=== PATIENT | male | born 1945 | race Caucasian/White ===

== ENCOUNTER 2016-08-14 11:34 | Inpatient (IN) | payer OTHER, MEDICARE ==
[~2016-08-14] VITALS: Ht 160 cm; Wt 97.5 kg
[~2016-08-14 11:34] MED LIST: ANDROGEL1.62% TOP; ASPIRIN EC81 M1 PO; ATIVAN0.5 MG PO; ATIVAN2 MG PO; AUGMENTIN 875-1 EACH PO; AUGMENTIN 875875 MG PO; CALCIUM 600 +1 EA10; CIPROFLOXACIN500 MG PO; COLACE100 MG PO; DOCUSATE SOD100 MG PO; ESCITALOPRAM OX20 MG PO; FIORICET 300 MG1 CAP PO; FIORICET 325 MG1 TAB PO; FLOMAX0.4 M1 PO; GABAPENTIN300 MG PO; HYDROXYCHLOROQ200 M1 PO; KLONOPIN 1MG TAB1 MG PO; LEFLUNOMIDE20 MG PO; LEVITRA2.5 MG PO; LEVOTHYROXIN0.075 M1 PO; LEVOTHYROXINE100 MC1 PO; LORAZEPAM2 MG PO; METOPROLOL SUCC50 MG PO; METRONIDAZOLE500 MG PO; MULTIVITAMIN1 TAB PO; NATURAL IRON65 MG PO; NEURONTIN300 M1 PO; NITROSTAT0.4 MG SL; OXYCODONE HCL5 M1 PO; OXYCODONE HYDROC5 MG PO; PLAQUENIL200 M1 PO; PREDNISONE5 M1 PO; PREDNISONE5 MG PO; PRILOSEC 20MG C20 MG PO; PRILOSEC OTC20 M1 PO; REQUIP 0.5MG0.5 M1 PO; TAMSULOSIN HYD0.4 MG PO; TOPROL XL50 M2 PO; TRAMADOL HYDROC50 MG PO; TYLENOL TAB 32325 MG PO; ULTRAM(MONOGRAP50 MG PO; VITAMIN B122500 MC1; VITAMIN D3400 UNI1; VITAMIN D50000 IU PO
--- NOTE | 2016-08-14 11:41 | ED GI/GU/ABDOMINAL COMPLAINT ---
History of Present Illness General Chief Complaint: Abdominal Pain/Flank Pain Stated Complaint: ABD PAIN Source: patient Exam Limitations: no limitations Vital Signs & Intake/Output Vital Signs & Intake/Output Vital Signs Date Time Temp Pulse Resp B/P B/P Pulse O2 O2 Flow FiO2 Mean Ox Delivery Rate 08/14 1903 98.7 77 20 118/60 96 Room Air 08/14 1710 97.3 77 18 98/80 97 08/14 1700 98.0 80 18 108/64 97 Room Air 08/14 1143 99.6 86 15 106/67 92 Room Air Room Air Allergies Coded Allergies: methotrexate (Severe, BREATHING PROBLEMS 08/14/16) hydrocodone (UNKNOWN 08/14/16) hydrochlorothiazide (From Dyazide) (Severe, LETHARGIC 08/14/16) triamterene (From Dyazide) (Severe, LETHARGIC 08/14/16) Uncoded Allergies: MAXIDINE (UNKNOWN 09/22/13) Reconcile Medications Amoxicillin/Potassium Clav (Augmentin 875-125 Tablet) 1 EACH TABLET 1 TAB PO BID Infection Aspirin (Ecotrin*) 81 MG TABLET.DR 1 TAB PO QPM HEART HEALTH (Reported) Butalbital/Aspirin/Caffeine (Raduhypkht-Dnz-Epsgvnll Cap) 50 MG-325 MG-40 MG CAPSULE 1 TAB PO DAILY PRN HEADACHE (Reported) Clonazepam 1 MG TABLET 1 TAB PO QPM ANXIETY (Reported) Docusate Sodium (Colace) 100 MG CAPSULE 2 CAP PO BID CONSTIPATION (Reported) Escitalopram Oxalate 20 MG TABLET 1 TAB PO DAILY MENTAL HEALTH (Reported) Fentanyl 25 MCG/HOUR PATCH.TD72 1 PAT TOP Q48 PAIN (Reported) Hydroxychlorquine (Plaquenil) 200 MG TABLET 1 TAB PO BID RA (Reported) Lactulose (Generlac) 10 GRAM/15 ML SOLUTION 15 ML PO DAILY CONSTIPATION ( Reported) Levothyroxine Sodium 100 MCG TABLET 1 TAB PO DAILY thyroid (Reported) Lorazepam (Ativan) 2 MG TABLET 1 TAB PO 4 TIMES/DAY ANXIETY (Reported) Metoprolol Succ XL (Toprol XL) 50 MG TAB.ER.24H 1 TAB PO QPM HTN (Reported) Omeprazole Magnesium (Prilosec Otc) 20 MG TABLET.DR 1 TAB PO DAILY GI ( Reported) Oxycodone HCl 5 MG TABLET 1 TAB PO 5 TIMES A DAY PAIN (Reported) Prednisone 5 MG TABLET 1 TAB PO DAILY STEROID (Reported) Ropinirole HCl 1 MG TABLET 1 TAB PO 1200 RESTLESS LEGS (Reported) Ropinirole HCl (Requip) 2 MG TABLET 1 TAB PO 1600 RESTLESS LEGS (Reported) Sennosides (Senna) 8.6 MG TABLET 1 TAB PO BID CONSTIPATION (Reported) Tamsulosin HCl (Flomax) 0.4 MG CAP.ER.24H 2 CAP PO QPM PROSTATE (Reported) Triage Nurses Notes Reviewed? yes Duration: worse persistent since (2 WEEKS), 2 MONTHS Timing: recent history Quality/Severity: fullness, moderate Location: left lower quadrant Radiation: no radiation No Modifying Factors: none Associated Symptoms: dysuria, NAUSEA, ANOREXIA, CONSTIPATION HPI: This is a 71-year-old male with history of rheumatoid arthritis on prednisone and presents to the ER for chief complaint of abdominal pain left lower quadrant for the past 2 months. Fever of 102 couple of days ago. He was seen at Dr. Loco's office this morning and sent for evaluation. He complains of differential culture with urine with dribbling and pain in the urine for the past 2 weeks which is new for him. History of diverticulosis abscess last year which was drained. Denies any vomiting but his appetite has been very diminished. He complains of very hard stools. He is on chronic pain medications for rheumatoid arthritis including oxycodone and fentanyl patches. No change in those medications. Past History Travel History Traveled to [place] past 21 day No Medical History Any Pertinent Medical History? see below for history Neurological: migraine, RESTLESS LEG SYNDROME anxiety post polio syndrome EENT: dental caries with recent tooth extraction Cardiovascular: angina Respiratory: asthma, obstructive sleep apnea Gastrointestinal: diverticulitis (intestinal resections.) Musculoskeletal: rheumatoid arthritis Psychiatric: anxiety Endocrine: diabetes, hypothyroidism History of MRSA: No History of VRE: No History of CDIFF: No Pneumonia Vaccine: 10/03/13 Surgical History Surgical History: small bowel resection for jejunal diverticulitis Psychosocial History Who do you live with Spouse Services at Home None What is your primary language Faroese Family History Family History, If Any: MOTHER (MYOCARDIAL INFARCTION). FATHER (lUNG CANCER). BROTHER (CT, stroke). SISTER (diabetes). Hx Contributory? No Review of Systems Review of Systems Constitutional: Reports: chills, fever. EENTM: Reports: no symptoms. Respiratory: Denies: cough, short of breath. Cardiovascular: Denies: chest pain, palpitations. GI: Reports: abdominal pain, bloating, constipation, nausea. Denies: vomiting. Genitourinary: Reports: dysuria, frequency, pain. Musculoskeletal: Denies: back pain. Skin: Reports: no symptoms. Neurological/Psychological: Reports: no symptoms. Hematologic/Endocrine: Denies: bruising, bleeding, polyuria, polydipsia. Immunologic/Allergic: Reports: no symptoms. All Other Systems: Reviewed and Negative Physical Exam Physical Exam General Appearance: well developed/nourished, alert, awake, mild distress, moderate distress, obese Head: atraumatic, normal appearance Eyes: Bilateral: PERRL, EOMI. Ears, Nose, Throat, Mouth: hearing grossly normal, DRY MUCUS MEMBRANES Neck: normal inspection, supple, full range of motion Respiratory: normal breath sounds, chest non-tender, no respiratory distress Cardiovascular: regular rate/rhythm Peripheral Pulses: 2+ radial (R), 2+ radial (L) Gastrointestinal: soft, tenderness (OVER HERNIA IN MID ABDOMEN), PROTUBERANT, TENDER LLQ, NEGATIVE FOR REBOUND OR GUARDING Back: normal inspection Extremities: normal range of motion Neurologic/Psych: no motor/sensory deficits, awake, alert, depressed affect Skin: pallor Core Measures ACS in differential dx? No Severe Sepsis Present: No Septic Shock Present: No Progress Differential Diagnosis: diverticulitis, urinary retention, UTI/pyelo, ABSCESS, MALIGNANCY Plan of Care: Orders Procedure Date/time Status PROTHROMBIN TIME 08/15 0600 Active CBC WITHOUT DIFFERENTIAL 08/15 0600 Active BASIC ELECTROLYTES PLUS BUN&CR 08/15 0600 Active Nothing by Mouth 08/14 D Active Vital Signs 08/14 1737 Active Teach/Educate 08/14 1737 Active Pain Treatment and Response 08/14 1737 Active Nutritional Intake, Monitor 08/14 1737 Active Isolation 08/14 1737 Active Intake & Output 08/14 1737 Active Patient Care Conference 08/14 1737 Active Activity/Ambulation 08/14 1737 Active TRC EVALUATION (GEN) 08/14 1457 Active Pathway - chart 08/14 1457 Active Patient Data 08/14 1457 Active Code Status 08/14 1457 Active EKG 08/14 1436 Active Admit to inpatient 08/14 1422 Active [place], Insertion/Removal/Asses 08/14 1159 Complete CULTURE,URINE 08/14 1159 Active URINALYSIS 08/14 1159 Complete PARTIAL THROMBOPLASTIN TIME 08/14 1159 Complete PROTHROMBIN TIME 08/14 1159 Complete C-REACTIVE PROTEIN 08/14 1159 Complete COMPREHENSIVE METABOLIC PANEL 08/14 1159 Complete CBC WITHOUT DIFFERENTIAL 08/14 1159 Complete Admit to inpatient 08/14 UNK Active VTE Mechanical Prophylaxis 08/14 UNK Active Vital Signs 08/14 UNK Active Intake & Output 08/14 UNK Active Activity/Ambulation 08/14 UNK Active Current Medications Sig/Junior Start time Last Medication Dose Stop Time Status Admin Ropinirole HCl 2 MG 1600 08/15 1600 AC (Requip) Ceftriaxone Sodium 1,000 MG DAILY 08/15 1000 AC (Rocephin) Escitalopram Oxalate 20 MG DAILY 08/15 1000 AC (Lexapro) Metoprolol Succinate 50 MG DAILY 08/15 1000 AC (Toprol Xl) Prednisone 5 MG DAILY 08/15 1000 AC Tamsulosin HCl 0.4 MG DAILY 08/15 1000 AC (Flomax) Levothyroxine Sodium 0.1 MG DAILY AC 08/15 0700 AC (Synthroid) Omeprazole 20 MG DAILY AC 08/15 0700 AC (Prilosec) Clonazepam 1 MG AT BEDTIME 08/14 2200 AC 08/14 (Klonopin 1MG Tab) 08/21 2158 215 Heparin Sodium 5,000 UNIT Q8 08/14 2200 AC 08/14 (Porcine) 2055 Hydroxychloroquine 200 MG BID 08/14 2200 AC 08/14 Sulfate 205 (Plaquenil 200MG Tab) Oxycodone HCl 5 MG Q4P PRN 08/14 1900 AC 08/14 (Roxicodone) 185 Lorazepam 2 MG FOUR TIMES A DAY 08/14 1800 AC 08/14 (Ativan) 205 Metronidazole 500 MG IQ8 08/14 1600 AC (Flagyl) N/A 1 UNIT (No Carrier) Acetaminophen 650 MG Q6PRN PRN 08/14 1500 AC (Tylenol) Dextrose/Sodium 1,000 ML .Q8H 08/14 1500 AC 08/14 Chloride 1852 (D5-Normal Saline) Morphine Sulfate 2 MG Q3P PRN 08/14 1500 AC (Morphine) Morphine Sulfate 4 MG Q3P PRN 08/14 1500 AC 08/14 (Morphine) 1938 Ondansetron HCl 4 MG Q6P PRN 08/14 1500 AC (Zofran) Ropinirole HCl 1 MG 1200 08/14 1500 AC 08/14 (Requip) 1938 Laboratory Tests 08/14/16 1225: Urinalysis LIGHT H, Urine Color YEL, Urine Clarity HAZY H, Urine pH 6.0, Ur Specific [place] >= 1.030, Urine Protein 100 H, Urine Ketones TRACE H, Urine Nitrite NEG, Urine Bilirubin NEG@ICTO, Urine Urobilinogen 2.0 H, Ur Leukocyte Esterase NEG, Ur Microscopic SEDIMENT EXAMINED, Urine RBC 3-5, Urine WBC 3-5 H, Ur Epithelial Cells FEW, Urine Bacteria MANY H, Granular Casts RARE H, Urine Mucus MOD H, Urine Hemoglobin SMALL H, Urine Glucose NEG 08/14/16 1215: PT 14.7 H, INR 1.40 H, APTT 29, CBC w Diff MAN DIFF ORDERED, RBC 3.38 L, MCV 88.3, MCH 29.1, RDW 14.9 H, MPV 7.1 L, Gran % 86.7 H, Lymphocytes % 9.4 L, Monocytes % 3.7, Eosinophils % 0.1, Basophils % 0.1, Absolute Granulocytes 9.1 H, Absolute Lymphocytes 1.0 L, Absolute Monocytes 0.4, Absolute Eosinophils 0, Absolute Basophils 0, Platelet Estimate VERIFIED BY SMEAR, Polychromasia 1+, Anisocytosis 1+, PUBS MCHC 33.0 08/14/16 1159: Anion Gap 11, Estimated GFR > 60, BUN/Creatinine Ratio 16.7, Glucose 114 H, Calcium 8.9, Total Bilirubin 1.0, AST 88 H, ALT 136 H, Alkaline Phosphatase 106, C-Reactive Prot, Quant > 9.0 H, Total Protein 6.7, Albumin 3.4 L, Globulin 3.3, Albumin/Globulin Ratio 1.0 L Microbiology 08/14 1225 URINE ROUT: Urine Culture - RECD CT CONSISTENT WITH DIVERTICULITIS WITH ABSCESS. IV ABX ORDERED. D/W DR LOCO WHO WILL ADMIT THE PATIENT TO THE HOSPITAL. D/W SURGICAL PA. (ANTONINO ADAN,FRANNIE) Diagnostic Imaging: Viewed by Me: CT Scan. Discussed w/RAD: CT Scan. Radiology Impression: PATIENT: SAMUEL RUVALCABA PRESENT AGE: 71 PATIENT ACCOUNT NO: [id number] : 46 LOCATION: [facility] ORDERING PHYSICIAN: FRANNIE MUÑIZ MD SERVICE DATE: 08/14/166290 EXAM TYPE: CAT - CT ABD & PELVIS W IV CONTRAST EXAMINATION: CT ABDOMEN AND PELVIS WITH CONTRAST CLINICAL INFORMATION: Left lower quadrant pain. COMPARISON: 10/29/2015. TECHNIQUE: Contiguous axial thin section helical images of the abdomen and pelvis were performed following the administration of 100 mL of intravenous Omnipaque 300. The data set was reformatted in the coronal and sagittal planes and reviewed on an independent workstation. DLP: 925 mGy-cm. FINDINGS: There is a stable 5 mm nodule within the lateral segment right middle lobe. The visualized lung bases are otherwise clear. The visualized portions of the heart are unremarkable. The liver is of normal size and attenuation without focal lesions. The patient is status post cholecystectomy. Surgical clips are present. There is stable moderate intrahepatic biliary ductal dilation. The common duct is dilated measuring 13 mm. The spleen, pancreas, adrenal glands are unremarkable. Both kidneys are of normal size and attenuation without hydronephrosis or nephrolithiasis. Following the administration of IV contrast, prompt symmetric nephrograms are displayed. There is no abdominal free fluid. There is neither mesenteric nor retroperitoneal lymphadenopathy. Again identified is a bowel containing midline anterior abdominal wall hernia without evidence of obstruction. There is an approximately 4.5 cm fluid collection containing gas adjacent to the sigmoid colon concerning for an abscess secondary to perforated diverticulitis. There is adjacent fat stranding. There is marked sigmoid colon wall thickening with extensive diverticulosis and diverticulitis. There are a few adjacent extraluminal flecks of gas present. In addition, I question the presence of a fluid collection to the left side of the sigmoid colon on image [id number] measuring 2.3 cm.. There is no pelvic free fluid. The urinary bladder is unremarkable. There is neither pelvic nor inguinal lymphadenopathy. Bone windows: Neither sclerotic nor lytic bone lesions are identified. There is a left L5 pars defect. There is no spondylolisthesis. There is marked disc height loss at L2/L3. There is less prominent multilevel disc height loss. IMPRESSION: Extensive sigmoid diverticulitis with 4.5 cm fluid collection to the right of the sigmoid colon containing gas adjacent to the sigmoid colon concerning for an abscess. In addition, there is a 2.3 cm collection to the left of the sigmoid colon also concerning for an abscess. DICTATED BY: LESLIE MCMAHON MD DATE/TIME DICTATED:08/14/161337 ELECTRIC APPLIANCE INSTALLER:SUYAPA DATE/TIME TRANSCRIBED:08/14/161337 CONFIDENTIAL, DO NOT COPY WITHOUT APPROPRIATE AUTHORIZATION. <Electronically signed in Other Vendor System> SIGNED BY: LESLIE MCMAHON MD 08/14/16 1351 Initial ED EKG: NSR, abnormal Q waves (INFERIOR) Departure Departure Time of Disposition: 1421 Disposition: STILL A PATIENT Condition: Stable Clinical Impression Primary Impression: Abscess of sigmoid colon due to diverticulitis Referrals: HARDY ADAN,ROBY Esquivel (PCP/Family) Departure Forms: Customer Survey General Discharge Information Admission Note Spoke With: BREONICA ADAN,BAILEE Nuñez Documentation of Exam: Documentation of any treatments & extenuating circumstances including Concerns Regarding Discharge (functional status, medication knowledge or non-compliance, living conditions, etc.) that warrant an admission rather than observation: [IV ABX, BOWEL REST, NPO, INTERVENTIONAL EVALUATION FOR ABSCESS DRAINAGE]
--- NOTE | 2016-08-14 11:51 | NUR ---
PT SENT TO ED BY DR. LOCO FOR 2 WEEKS OF URINARY RETENTION AND 2 MONTHS OF ABD PAIN. RECENTLY HAD ABD ABCESS WITH A DRAIN PLACED (NO SURGICAL INTERVENTION). PER PT, "DRIBBLING" HASN'T HAD NORMAL URINARY OUTPUT FOR WEEKS.
--- NOTE | 2016-08-14 12:23 | NUR ---
BLDS DRAWN AND SENT
--- NOTE | 2016-08-14 12:28 | NUR ---
COUDE ESTRADA CATH PLACED WITH APPROX 50ML DARK YELLOW URINE OBTAINED. PT STATES HE FEELS LIKE HE STILL NEEDS TO VOID. BLADDER SCANNED MULTIPLE TIMES WITH 0ML SHOW IN BLADDER, MD AWARE. ESTRADA TO BE REMOVED.
[2016-08-14 12:36] LABS: ABSOLUTE BASOPHIL COUNT 0 /CUMM (0.0-0.2); ABSOLUTE EOSINOPHIL COUNT 0 /CUMM (0.0-0.7); ABSOLUTE GRANULOCYTE CT 9.1 /CUMM (1.4-6.5); ABSOLUTE MONOCYTE COUNT 0.4 /CUMM (0.10-0.60); BASOPHIL % 0.1 % (0.0-2.0); EOSINOPHIL % 0.1 % (0-5); GRANULOCYTE % 86.7 % (42.2-75.2); HEMATOCRIT 29.8 % (42-52); MEAN CORPUSCULAR HGB 29.1 PG (27.0-31.0); MEAN CORPUSCULAR VOLUME 88.3 FL (80.0-94.0); MEAN PLATELET VOLUME 7.1 FL (7.4-10.4); PLATELET COUNT 323 /CUMM (130-400); RBC DISTRIBUTION WIDTH 14.9 % (11.5-14.5); RED BLOOD CELL CT 3.38 /CUMM (4.70-6.10); WHITE BLOOD CELL COUNT 10.5 /CUMM (4.8-10.8)
[2016-08-14 13:09] LABS: PT 14.7 SEC (9.4-12.5); PTT 29 SEC (25-37)
--- NOTE | 2016-08-14 13:18 | NUR ---
IV EST. PT TAKEN TO CAT.
--- NOTE | 2016-08-14 13:51 | CT SCAN REPORT ---
EXAMINATION: CT ABDOMEN AND PELVIS WITH CONTRAST CLINICAL INFORMATION: Left lower quadrant pain. COMPARISON: 10/29/2015. TECHNIQUE: Contiguous axial thin section helical images of the abdomen and pelvis were performed following the administration of 100 mL of intravenous Omnipaque 300. The data set was reformatted in the coronal and sagittal planes and reviewed on an independent workstation. DLP: 925 mGy-cm. FINDINGS: There is a stable 5 mm nodule within the lateral segment right middle lobe. The visualized lung bases are otherwise clear. The visualized portions of the heart are unremarkable. The liver is of normal size and attenuation without focal lesions. The patient is status post cholecystectomy. Surgical clips are present. There is stable moderate intrahepatic biliary ductal dilation. The common duct is dilated measuring 13 mm. The spleen, pancreas, adrenal glands are unremarkable. Both kidneys are of normal size and attenuation without hydronephrosis or nephrolithiasis. Following the administration of IV contrast, prompt symmetric nephrograms are displayed. There is no abdominal free fluid. There is neither mesenteric nor retroperitoneal lymphadenopathy. Again identified is a bowel containing midline anterior abdominal wall hernia without evidence of obstruction. There is an approximately 4.5 cm fluid collection containing gas adjacent to the sigmoid colon concerning for an abscess secondary to perforated diverticulitis. There is adjacent fat stranding. There is marked sigmoid colon wall thickening with extensive diverticulosis and diverticulitis. There are a few adjacent extraluminal flecks of gas present. In addition, I question the presence of a fluid collection to the left side of the sigmoid colon on image [id number] measuring 2.3 cm.. There is no pelvic free fluid. The urinary bladder is unremarkable. There is neither pelvic nor inguinal lymphadenopathy. Bone windows: Neither sclerotic nor lytic bone lesions are identified. There is a left L5 pars defect. There is no spondylolisthesis. There is marked disc height loss at L2/L3. There is less prominent multilevel disc height loss. IMPRESSION: Extensive sigmoid diverticulitis with 4.5 cm fluid collection to the right of the sigmoid colon containing gas adjacent to the sigmoid colon concerning for an abscess. In addition, there is a 2.3 cm collection to the left of the sigmoid colon also concerning for an abscess.
[2016-08-14] MEDS ORDERED: COLACE100 M1 PO (14:16)
[2016-08-14] MEDS ORDERED: SENNA8.6 M3 PO (14:17)
[2016-08-14] MEDS ORDERED: ROPINIROLE HCL1 MG PO (14:18)
[2016-08-14] MEDS ORDERED: REQUIP2 M1 PO (14:18)
[2016-08-14] MEDS ORDERED: CLONAZEPAM1 M2 PO (14:20)
[2016-08-14] MEDS ORDERED: FENTANYL1 EAC2 TOP (14:22)
[2016-08-14] MEDS ORDERED: GENERLAC10 GM/151 PO (14:23)
[2016-08-14] MEDS ORDERED: AMOX-CLAV 875-1 EACH PO (14:24)
[2016-08-14] MEDS ORDERED: BUTALBITAL-ASA1 EACH PO (14:24)
--- NOTE | 2016-08-14 14:43 | Admission Core Measures ---
Admission Lab Results I reviewed the following labs: Laboratory Tests 08/14 1225 Urines Urinalysis LIGHT H Urine Color (YEL,AMB,STR) YEL Urine Clarity (CLEAR) HAZY H Urine pH (5.0 - 8.0) 6.0 Ur Specific [place] (1.001 - 1.035) >= 1.030 Urine Protein (NEG,<30 MG/DL) 100 H Urine Ketones (NEG) TRACE H Urine Nitrite (NEG) NEG Urine Bilirubin (NEG) NEG@ICTO Urine Urobilinogen (0.1 - 1.0 EU/dl) 2.0 H Ur Leukocyte Esterase (NEG) NEG Ur Microscopic SEDIMENT EXAMINED Urine RBC (0 - 5 /HPF) 3-5 Urine WBC (0 - 2 /HPF) 3-5 H Ur Epithelial Cells (NONE,FEW) FEW Urine Bacteria (NEG/NONE) MANY H Granular Casts (NONE /LPF) RARE H Urine Mucus (FEW,NONE) MOD H Urine Hemoglobin (NEG) SMALL H Urine Glucose (N MG/DL) NEG 08/14 08/14 1215 1159 Chemistry Sodium (137 - 145 mmol/L) 135 L Potassium (3.5 - 5.1 mmol/L) 3.8 Chloride (98 - 107 mmol/L) 99 Carbon Dioxide (22 - 30 mmol/L) 25 Anion Gap (5 - 16) 11 BUN (9 - 20 mg/dL) 15 Creatinine (0.7 - 1.2 mg/dL) 0.9 Estimated GFR (>60 ml/min) > 60 BUN/Creatinine Ratio (7 - 25 %) 16.7 Glucose (65 - 99 mg/dL) 114 H Calcium (8.4 - 10.2 mg/dL) 8.9 Total Bilirubin (0.2 - 1.3 mg/dL) 1.0 AST (17 - 59 U/L) 88 H ALT (21 - 72 U/L) 136 H Alkaline Phosphatase (< 127 U/L) 106 C-Reactive Prot, Quant (<1.0 mg/dL) > 9.0 H Total Protein (6.3 - 8.2 g/dL) 6.7 Albumin (3.5 - 5.0 g/dL) 3.4 L Globulin (1.9 - 4.2 gm/dL) 3.3 Albumin/Globulin Ratio (1.1 - 2.2 %) 1.0 L Coagulation PT (9.4 - 12.5 SEC) 14.7 H INR (0.90 - 1.17) 1.40 H APTT (25 - 37 SEC) 29 Hematology CBC w Diff MAN DIFF ORDERED WBC (4.8 - 10.8 /CUMM) 10.5 RBC (4.70 - 6.10 /CUMM) 3.38 L Hgb (14.0 - 18.0 G/DL) 9.8 L Hct (42 - 52 %) 29.8 L MCV (80.0 - 94.0 FL) 88.3 MCH (27.0 - 31.0 PG) 29.1 RDW (11.5 - 14.5 %) 14.9 H Plt Count (130 - 400 /CUMM) 323 MPV (7.4 - 10.4 FL) 7.1 L Gran % (42.2 - 75.2 %) 86.7 H Lymphocytes % (20.5 - 51.1 %) 9.4 L Monocytes % (1.7 - 9.3 %) 3.7 Eosinophils % (0 - 5 %) 0.1 Basophils % (0.0 - 2.0 %) 0.1 Absolute Granulocytes (1.4 - 6.5 /CUMM) 9.1 H Absolute Lymphocytes (1.2 - 3.4 /CUMM) 1.0 L Absolute Monocytes (0.10 - 0.60 /CUMM) 0.4 Absolute Eosinophils (0.0 - 0.7 /CUMM) 0 Absolute Basophils (0.0 - 0.2 /CUMM) 0 Platelet Estimate (ADEQUATE) VERIFIED BY SMEAR Polychromasia 1+ Anisocytosis 1+ PUBS MCHC (33.0 - 37.0 G/DL) 33.0 Admission Meds I reviewed the following Meds: Current Medications Sig/Junior Start time Last Medication Dose Stop Time Status Admin Metronidazole 500 MG ONCE ONE 08/14 1415 AC (Flagyl) 08/14 1514 N/A 1 UNIT (No Carrier) Acute Coronary Syndrome Inclusion Criteria ACS Diagnosis No Inpatient Core Measures LDL Reminder: If No, please order W/I first 24hr of stay Congestive Heart Failure Inclusion Criteria CHF Diagnosis No Cerebrovascular accident Inclusion Criteria CVA/TIA Diagnosis No Inpatient Core Measures Bedside Swallow Eval Reminder: If BSE failed, place ST order Antithrombotic Reminder: Order Antithrombotic Medication by end of day 2 Antithrombotic Reminder: Document Reason Antithrombotic Not ordered by end of day 2 AFIB/Flutter Reminder: If Present, add to problem list AFIB/Flutter Reminder: Order Anticoag Medication for pts with AFIB/Flutter Atherosclerosis Reminder: If Present, add to problem list LDL Reminder: If No, please order W/I first 24hr of stay PT Order Reminder: If No, please order Venous thromboembolism Inpatient Core Measures VTE Risk Factors: Age > 40, Obesity No [facility] VTE prophylaxis d/t No contraindications No VTE Pharm Prophylaxis d/t No contraindications Inclusion Criteria - Per Current guidelines, there needs to be overlap - treatment for the first 5 days of Warfarin therapy. - Parenteral Anticoagulation (IV or SC) needs to be - given along with Warfarin therapy. VTE Diagnosis No VTE Type NONE VTE Confirmed by (Test) NONE Problem List As ranked by this Provider includes Assessment & Plan 1. Abscess of sigmoid colon due to diverticulitis HOME MEDS Home Med List Amoxicillin/Potassium Clav (Augmentin 875-125 Tablet) 1 EACH TABLET 1 TAB PO BID Infection Aspirin (Ecotrin*) 81 MG TABLET.DR 1 TAB PO QPM HEART HEALTH (Reported) Butalbital/Aspirin/Caffeine (Xcqvkudiry-Uas-Rgtcvdxc Cap) 50 MG-325 MG-40 MG CAPSULE 1 TAB PO DAILY PRN HEADACHE (Reported) Clonazepam 1 MG TABLET 1 TAB PO QPM ANXIETY (Reported) Docusate Sodium (Colace) 100 MG CAPSULE 2 CAP PO BID CONSTIPATION (Reported) Escitalopram Oxalate 20 MG TABLET 1 TAB PO DAILY MENTAL HEALTH (Reported) Fentanyl 25 MCG/HOUR PATCH.TD72 1 PAT TOP Q48 PAIN (Reported) Gabapentin (Neurontin) 300 MG CAPSULE 1 CAP PO 4 TIMES/DAY RESTLESS LEGS ( Reported) Hydroxychlorquine (Plaquenil) 200 MG TABLET 1 TAB PO BID RA (Reported) Lactulose (Generlac) 10 GRAM/15 ML SOLUTION 15 ML PO DAILY CONSTIPATION ( Reported) Levothyroxine Sodium 100 MCG TABLET 1 TAB PO DAILY thyroid (Reported) Lorazepam (Ativan) 2 MG TABLET 1 TAB PO 4 TIMES/DAY ANXIETY (Reported) Metoprolol Succ XL (Toprol XL) 50 MG TAB.ER.24H 1 TAB PO QPM HTN (Reported) Omeprazole Magnesium (Prilosec Otc) 20 MG TABLET.DR 1 TAB PO DAILY GI ( Reported) Oxycodone HCl 5 MG TABLET 1 TAB PO 5 TIMES A DAY PAIN (Reported) Prednisone 5 MG TABLET 1 TAB PO DAILY STEROID (Reported) Ropinirole HCl 1 MG TABLET 1 TAB PO 1200 RESTLESS LEGS (Reported) Ropinirole HCl (Requip) 2 MG TABLET 1 TAB PO 1600 RESTLESS LEGS (Reported) Sennosides (Senna) 8.6 MG TABLET 1 TAB PO BID CONSTIPATION (Reported) Tamsulosin HCl (Flomax) 0.4 MG CAP.ER.24H 2 CAP PO QPM PROSTATE (Reported)
--- NOTE | 2016-08-14 14:58 | RADIOLOGY REPORT ---
EXAMINATION: XR PORTABLE CHEST CLINICAL INFORMATION: Lower abdominal pain. Sigmoid diverticulitis. Chest radiograph ordered for patient hospital admission. Evaluate for pneumonia. COMPARISON: 07/23/2014 TECHNIQUE: Portable frontal view of the chest was obtained. FINDINGS: Large body habitus. Lungs are well expanded and without evidence of edema or focal consolidation. No pleural effusion. The enlarged cardiomediastinal silhouette (with prominent mediastinal fat) has stable size and configuration compared to 07/23/2014. Trachea is midline in position. 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 IMPRESSION: No acute findings; no evidence of pneumonia.
--- NOTE | 2016-08-14 15:14 | NUR ---
FLAGYL INFUSING (SEE MAR)
--- NOTE | 2016-08-14 15:41 | History & Physical Pre-Op ---
General Information and HPI History of Present Illness: Patient sent in by me from office for workup of abdominal pain. Patient presents for evaluation of abdominal pain. He is known to have chronic diverticular abscess that has failed percutaneous drainage x 2. Consideration for resection was made but no arrangements made for surgery per patient decision (high risk surgery). He was last seen by me in August 2015 and since then has had progressive symptoms. Now he c/o 2 mos duration of severe lower abdominal pain associated with constipation/diarrhea. Main c/o is that of urinary incontinence with "dribbling urine". recent urine culture negx3. He has been empirically treated by PCP for diverticulitis with Augmentin. Allergies/Medications Allergies: Coded Allergies: methotrexate (Severe, BREATHING PROBLEMS 08/14/16) hydrocodone (UNKNOWN 08/14/16) hydrochlorothiazide (From Dyazide) (Severe, LETHARGIC 08/14/16) triamterene (From Dyazide) (Severe, LETHARGIC 08/14/16) Uncoded Allergies: MAXIDINE (UNKNOWN 09/22/13) Home Med list Amoxicillin/Potassium Clav (Augmentin 875-125 Tablet) 1 EACH TABLET 1 TAB PO BID Infection Aspirin (Ecotrin*) 81 MG TABLET.DR 1 TAB PO QPM HEART HEALTH (Reported) Butalbital/Aspirin/Caffeine (Oprwqzglcg-Kus-Tpjxeqbs Cap) 50 MG-325 MG-40 MG CAPSULE 1 TAB PO DAILY PRN HEADACHE (Reported) Clonazepam 1 MG TABLET 1 TAB PO QPM ANXIETY (Reported) Docusate Sodium (Colace) 100 MG CAPSULE 2 CAP PO BID CONSTIPATION (Reported) Escitalopram Oxalate 20 MG TABLET 1 TAB PO DAILY MENTAL HEALTH (Reported) Fentanyl 25 MCG/HOUR PATCH.TD72 1 PAT TOP Q48 PAIN (Reported) Gabapentin (Neurontin) 300 MG CAPSULE 1 CAP PO 4 TIMES/DAY RESTLESS LEGS ( Reported) Hydroxychlorquine (Plaquenil) 200 MG TABLET 1 TAB PO BID RA (Reported) Lactulose (Generlac) 10 GRAM/15 ML SOLUTION 15 ML PO DAILY CONSTIPATION ( Reported) Levothyroxine Sodium 100 MCG TABLET 1 TAB PO DAILY thyroid (Reported) Lorazepam (Ativan) 2 MG TABLET 1 TAB PO 4 TIMES/DAY ANXIETY (Reported) Metoprolol Succ XL (Toprol XL) 50 MG TAB.ER.24H 1 TAB PO QPM HTN (Reported) Omeprazole Magnesium (Prilosec Otc) 20 MG TABLET.DR 1 TAB PO DAILY GI ( Reported) Oxycodone HCl 5 MG TABLET 1 TAB PO 5 TIMES A DAY PAIN (Reported) Prednisone 5 MG TABLET 1 TAB PO DAILY STEROID (Reported) Ropinirole HCl 1 MG TABLET 1 TAB PO 1200 RESTLESS LEGS (Reported) Ropinirole HCl (Requip) 2 MG TABLET 1 TAB PO 1600 RESTLESS LEGS (Reported) Sennosides (Senna) 8.6 MG TABLET 1 TAB PO BID CONSTIPATION (Reported) Tamsulosin HCl (Flomax) 0.4 MG CAP.ER.24H 2 CAP PO QPM PROSTATE (Reported) Past History Medical History Neurological: migraine, RESTLESS LEG SYNDROME anxiety post polio syndrome EENT: dental caries with recent tooth extraction Cardiovascular: angina Respiratory: asthma, obstructive sleep apnea Gastrointestinal: diverticulitis (intestinal resections.) Musculoskeletal: degen joint disease, rheumatoid arthritis, currently scheduled for cervical spine surgery 09/01/16 Psychiatric: anxiety Endocrine: hypothyroidism, obesity, DIABETES TYPE II History of MRSA: No History of VRE: No History of CDIFF: No Pneumonia Vaccine: 10/03/13 Surgical History Pertinent Surgical History: cholecystectomy, hernia repair-ventral, small bowel resection for jejunal diverticulitis Past Family/Social History Family History Relations & Conditions if any MOTHER (MYOCARDIAL INFARCTION). FATHER (lUNG CANCER). BROTHER (VT, stroke). SISTER (diabetes). Psychosocial History Services at Home None ETOH Use: denies use Illicit Drug Use: denies illicit drug use Review of Systems Review of Systems: Patient reports neck stiffness but reports no swollen glands. He reports abdominal pain, change in appetite, frequent diarrhea, and constipation but reports no vomiting, no vomiting blood, no bloating, no belching, no constipation, no regurgitation, and no rectal bleeding. He reports urinary loss of control and difficulty urinating but reports no hematuria and no increased frequency. He reports no fatigue, no fever, no night sweats, no significant weight gain, no significant weight loss, and no exercise intolerance. He reports no abnormal moles, no jaundice, no hives, no eczema, and no rashes. He reports no cough, no wheezing, no shortness of breath, and no coughing up blood. He reports no muscle aches, no muscle weakness, no arthralgias/joint pain, and no back pain. Exam & Diagnostic Data Last 24 Hrs of Vital Signs/I&O Vital Signs Date Time Temp Pulse Resp B/P B/P Pulse O2 O2 Flow FiO2 Mean Ox Delivery Rate 08/14 1143 99.6 86 15 106/67 92 Room Air Room Air Intake & Output 08/14 1600 08/14 0800 08/14 0000 Intake Total 1000 Output Total 50 Balance 950 Intake, IV 1000 Output, Urine 50 Patient 219 lb Weight Weight Reported by Patient Measurement Method Physical Exam: Patient is a 71-year-old male. Constitutional: General Appearance: healthy-appearing and obese. Level of Distress: no acute distress. Ambulation: ambulation with cane and walker. Head: Head: normocephalic and atraumatic. Neck: Neck: supple, trachea midline, no masses, and full range of motion. Thyroid: no enlargement or nodules and non-tender. Lymph Nodes: no cervical LAD, supraclavicular LAD, axillary LAD, or inguinal LAD. Lungs: Respiratory effort: no dyspnea. Auscultation: good air movement and no wheezing. Abdomen: Inspection and Palpation: no masses or CVA tenderness; guarding, RLQ tenderness, suprapubic tenderness, and rebound tenderness; and soft and non- distended. Bowel Sounds: normal. Liver: non-tender and no hepatomegaly. Spleen: non-tender and no splenomegaly. Hernia: incisional (multiple bowel containing henias that are nontender. incompletely reducible.). Skin: Inspection and palpation: no rash, lesions, ulcer, induration, nodules, jaundice, or abnormal nevi and good turgor. Musculoskeletal:: Extremities: no cyanosis, edema, varicosities, or palpable cord. Psychiatric: Insight: good judgement and insight. Mental Status: normal mood and affect and active and alert. Orientation: to time, place, and person. Memory: recent memory normal and remote memory normal. Diagnostic Data Other Results Ct images personally reviewed. There are two pericolonic abscesses, the right side is larger. It is intimately associated with the bladder. The left colonic abscess is 2cm. There is diffuse sigmoid diverticulitis. Assessment/Plan Assessment/Plan: 71yo male with recurrent severe chronic diverticulitis with abscess. It will not resolve with medical management. It is clear that surgical resection will be required. It is causing bladder dysfunction due to local irritation/spasm. There may be a small colovesicle fistula but there is not one clinically. At this point, emergent surgical intervention is not necessary. Hopefully the process can be temporized such that a single stage resection(with anastomosis) can be performed. Surgery is high risk due to underlying immunosuppression related to treatment of rheumatoid arthritis. Obesity and debilitation plays a role as well. Plan for IR drainage of pericolonic abscess and IV abx combined with bowel rest. If successful, surgical resection with concurrent incisional hernia repair can be considered in 2 months. As Ranked By This Provider Problem List: 1. Abscess of sigmoid colon due to diverticulitis 2. Incisional hernia with obstruction Copies To: BRIAN ADAN,ANGEL Kinsey; HARDY ADAN,ROBY Esquivel
--- NOTE | 2016-08-14 16:05 | NUR ---
PATIENT ALERT ORIENTED C/O URINARY BURNING C/O ABD DISCOMFORT
--- NOTE | 2016-08-14 16:38 | NUR ---
PT ADMITTED TO ROOM 230-2
--- NOTE | 2016-08-14 17:33 | NUR ---
PATIENT WAS RE-MEDICATED FOR PAIN W/ MORPHINE AT 1700 PATIENT REMIANS ALERT ORIENTED SKIN WARM DY REPORT GIVEN TO FLOOR
--- NOTE | 2016-08-14 18:50 | NUR ---
PT UP TO FLOOR AT 1815.PT A/OX3. PT ON RA. VSS. PT C.O SEVERE PAIN. PA CALLED NO PRN DOSES AVAIALBLE AT TIME OF ADMIT. ORDER OBTAINED. IVF INFUSING PER EMAR. NO BREAKDOWN NOTED. AT BASELINE OOB WITH CANE. PER PT TOO WEAK TO MOVE AT THIS TIME. HX OF FALLS. BED ALARM IN PLACE. CALL CHILD USE INSTRUCTED .WILL MONITOR
[2016-08-14 19:03] VITALS: BP 118/60
[2016-08-14 23:03] VITALS: BP 124/60
[2016-08-15 06:16] VITALS: BP 134/68
--- NOTE | 2016-08-15 08:11 | PN- General Surgery ---
See Addendum Subjective Subjective: Febrile to 102.9 this morning. Denies chills/sweats. Reports ongoing abdominal pain. "Dribbling urine" continues. He reports several week history of dysuria. Nursing reports diarrhea overnight. He denies nausea/vomiting. "I'm hungry". Objective Vital Signs and I&Os Vital Signs Date Time Temp Pulse Resp B/P B/P Pulse O2 O2 Flow FiO2 Mean Ox Delivery Rate 08/15 0721 102.9 08/15 0616 102.9 86 20 134/68 93 Room Air 08/14 2303 98.6 78 20 124/60 98 Room Air 08/14 1903 98.7 77 20 118/60 96 Room Air 08/14 1710 97.3 77 18 98/80 97 08/14 1700 98.0 80 18 108/64 97 Room Air 08/14 1143 99.6 86 15 106/67 92 Room Air Room Air Intake & Output 08/15 1600 08/15 0800 08/15 0000 08/14 1600 08/14 0800 08/14 0000 Intake Total 620 1000 Output Total 50 Balance 620 950 Intake, IV 500 1000 Intake, Oral 120 Output, Urine 50 Patient 215 lb 219 lb Weight Weight Reported by Patient Reported by Patient Measurement Method Physical Exam: General - alert & oriented x 3. comfortable. no acute distress. Lungs - clear bilaterally. no w/r/r. Cardiac - s1s2. slightly tachy, rate 100-110. Abdomen - soft. obese. bowel sounds appreciated. right lower tenderness with guarding and rebound. Multiple known ventral hernias, nontender. Extremities - warm bilaterally. no c/c/e. calves soft and nontender b/l. Current Medications: Current Medications Sig/Junior Start time Last Medication Dose Route Stop Time Status Admin Acetaminophen 650 MG Q6PRN PRN 08/14 1500 AC 08/15 PO 0721 Ceftriaxone Sodium 1,000 MG DAILY 08/15 1000 AC IV Ceftriaxone Sodium 0 .STK-MED ONE 08/14 1420 DC .ROUTE Ceftriaxone Sodium 1,000 MG ONCE ONE 08/14 1415 DC 08/14 IV 08/14 1416 1418 Clonazepam 1 MG AT BEDTIME 08/14 2200 AC 08/14 PO 08/21 2158 2155 Dextrose/Sodium 1,000 ML .Q8H 08/14 1500 AC 08/15 Chloride IV 0650 Escitalopram Oxalate 20 MG DAILY 08/15 1000 AC PO Gabapentin 300 MG Q6 08/14 1800 DC PO Heparin Sodium 5,000 UNIT Q8 08/14 2200 AC 08/15 (Porcine) SC 0652 Hydroxychloroquine 200 MG BID 08/14 2200 AC 08/14 Sulfate PO 2055 Levothyroxine Sodium 0.1 MG DAILY AC 08/15 0700 AC 08/15 PO 52 Lorazepam 2 MG FOUR TIMES A DAY 08/14 1800 AC 08/14 PO 2055 Metoprolol Succinate 50 MG DAILY 08/15 1000 AC PO Metronidazole 500 MG IQ8 08/14 1600 AC 08/15 N/A 1 UNIT IV 0045 Metronidazole 500 MG ONCE ONE 08/14 1415 DC 08/14 N/A 1 UNIT IV 08/14 1514 1513 Morphine Sulfate 0 .STK-MED ONE 08/14 1654 DC .ROUTE Morphine Sulfate 2 MG Q3P PRN 08/14 1500 AC IV Morphine Sulfate 4 MG Q3P PRN 08/14 1500 AC 08/15 IV 0658 Morphine Sulfate 0 .STK-MED ONE 08/14 1417 DC .ROUTE Morphine Sulfate 4 MG ONCE ONE 08/14 1415 DC 08/14 IV 08/14 1416 1413 Omeprazole 20 MG DAILY AC 08/15 0700 AC 08/15 PO 0652 Ondansetron HCl 4 MG Q6P PRN 08/14 1500 AC IV Oxycodone HCl 5 MG Q4P PRN 08/14 1900 AC 08/15 PO 0130 Prednisone 5 MG DAILY 08/15 1000 AC PO Ropinirole HCl 2 MG 1600 08/15 1600 AC PO Ropinirole HCl 1 MG 1200 08/14 1500 AC 08/14 PO 1938 Sodium Chloride 1,000 ML BOLUS ONE 08/14 1200 DC 08/14 IV 08/14 1259 1350 Tamsulosin HCl 0.4 MG DAILY 08/15 1000 AC PO Results Last 48 Hours of Labs: Laboratory Tests 08/15 08/14 0620 1225 Chemistry Sodium Pending Potassium Pending Chloride Pending Carbon Dioxide Pending Anion Gap Pending BUN Pending Creatinine Pending BUN/Creatinine Ratio Pending Coagulation PT Pending INR Pending Hematology CBC w Diff Pending WBC Pending RBC Pending Hgb Pending Hct Pending MCV Pending MCH Pending RDW Pending Plt Count Pending MPV Pending PUBS MCHC Pending Urines Urinalysis LIGHT H Urine Color (YEL,AMB,STR) YEL Urine Clarity (CLEAR) HAZY H Urine pH (5.0 - 8.0) 6.0 Ur Specific Pisek (1.001 - 1.035) >= 1.030 Urine Protein (NEG,<30 MG/DL) 100 H Urine Ketones (NEG) TRACE H Urine Nitrite (NEG) NEG Urine Bilirubin (NEG) NEG@ICTO Urine Urobilinogen (0.1 - 1.0 EU/dl) 2.0 H Ur Leukocyte Esterase (NEG) NEG Ur Microscopic SEDIMENT EXAMINED Urine RBC (0 - 5 /HPF) 3-5 Urine WBC (0 - 2 /HPF) 3-5 H Ur Epithelial Cells (NONE,FEW) FEW Urine Bacteria (NEG/NONE) MANY H Granular Casts (NONE /LPF) RARE H Urine Mucus (FEW,NONE) MOD H Urine Hemoglobin (NEG) SMALL H Urine Glucose (N MG/DL) NEG 08/14 08/14 1215 1159 Chemistry Sodium (137 - 145 mmol/L) 135 L Potassium (3.5 - 5.1 mmol/L) 3.8 Chloride (98 - 107 mmol/L) 99 Carbon Dioxide (22 - 30 mmol/L) 25 Anion Gap (5 - 16) 11 BUN (9 - 20 mg/dL) 15 Creatinine (0.7 - 1.2 mg/dL) 0.9 Estimated GFR (>60 ml/min) > 60 BUN/Creatinine Ratio (7 - 25 %) 16.7 Glucose (65 - 99 mg/dL) 114 H Calcium (8.4 - 10.2 mg/dL) 8.9 Total Bilirubin (0.2 - 1.3 mg/dL) 1.0 AST (17 - 59 U/L) 88 H ALT (21 - 72 U/L) 136 H Alkaline Phosphatase (< 127 U/L) 106 C-Reactive Prot, Quant (<1.0 mg/dL) > 9.0 H Total Protein (6.3 - 8.2 g/dL) 6.7 Albumin (3.5 - 5.0 g/dL) 3.4 L Globulin (1.9 - 4.2 gm/dL) 3.3 Albumin/Globulin Ratio (1.1 - 2.2 %) 1.0 L Coagulation PT (9.4 - 12.5 SEC) 14.7 H INR (0.90 - 1.17) 1.40 H APTT (25 - 37 SEC) 29 Hematology CBC w Diff MAN DIFF ORDERED WBC (4.8 - 10.8 /CUMM) 10.5 RBC (4.70 - 6.10 /CUMM) 3.38 L Hgb (14.0 - 18.0 G/DL) 9.8 L Hct (42 - 52 %) 29.8 L MCV (80.0 - 94.0 FL) 88.3 MCH (27.0 - 31.0 PG) 29.1 RDW (11.5 - 14.5 %) 14.9 H Plt Count (130 - 400 /CUMM) 323 MPV (7.4 - 10.4 FL) 7.1 L Gran % (42.2 - 75.2 %) 86.7 H Lymphocytes % (20.5 - 51.1 %) 9.4 L Monocytes % (1.7 - 9.3 %) 3.7 Eosinophils % (0 - 5 %) 0.1 Basophils % (0.0 - 2.0 %) 0.1 Absolute Granulocytes (1.4 - 6.5 /CUMM) 9.1 H Absolute Lymphocytes (1.2 - 3.4 /CUMM) 1.0 L Absolute Monocytes (0.10 - 0.60 /CUMM) 0.4 Absolute Eosinophils (0.0 - 0.7 /CUMM) 0 Absolute Basophils (0.0 - 0.2 /CUMM) 0 Platelet Estimate (ADEQUATE) VERIFIED BY SMEAR Polychromasia 1+ Anisocytosis 1+ PUBS MCHC (33.0 - 37.0 G/DL) 33.0 Assessment/Plan Assessment/Plan This 71 year old male with history of htn, bph, gerd, anxiety, rls, ra, is here with recurrent severe chronic diverticulitis with abscess, unimproved with medical management, with associated bladder dysfunction due to local irritation/ spasm, cannot rule out small colovesicle fistula, currently febrile to 102.9 currently npo / ivf continue iv antibiotics for intra-abdominal infection, rocephin / flagyl awaiting labs blood cultures drawn this morning will f/u urine culture hep sc - dvt ppx ?continue prednisone / plaquenil plan for IR drainage today will d/w Core Measures/Miscellaneous Venous Thromboembolism VTE Risk Factors: Age > 40, Obesity VTE Contraindications: No Contraindications VTE Diagnosis: No VTE Type: NONE VTE Confirmed by (Test): NONE Beta Luis F Is Beta Luis F a Home Med? No Antibiotics Is Patient on Antibiotics? Yes If Yes: infection
[2016-08-15 08:40] LABS: PT 14.7 SEC (9.4-12.5)
[2016-08-15 08:44] LABS: ABSOLUTE BASOPHIL COUNT 0 /CUMM (0.0-0.2); ABSOLUTE EOSINOPHIL COUNT 0 /CUMM (0.0-0.7); ABSOLUTE GRANULOCYTE CT 10.4 /CUMM (1.4-6.5); ABSOLUTE MONOCYTE COUNT 0.7 /CUMM (0.10-0.60); BASOPHIL % 0.2 % (0.0-2.0); EOSINOPHIL % 0.1 % (0-5); GRANULOCYTE % 79.4 % (42.2-75.2); HEMATOCRIT 31.9 % (42-52); MEAN CORPUSCULAR HGB 29.3 PG (27.0-31.0); MEAN CORPUSCULAR HGB CONC 33.1 G/DL (33.0-37.0); MEAN CORPUSCULAR VOLUME 88.6 FL (80.0-94.0); MEAN PLATELET VOLUME 7.6 FL (7.4-10.4); PLATELET COUNT 359 /CUMM (130-400); RBC DISTRIBUTION WIDTH 15.1 % (11.5-14.5)
--- NOTE | 2016-08-15 09:30 | NUR ---
0400 PT WILL NOT USE COMMODE TO VOID OR BM.INCONT OF URINE FREQUENTLY.OOB TO BR WITH ASSIST OF 1-2.VOIDING SMALL AMOUNT OF URINE & HAD SMALL AMOUNT OF SOFT YELLOW STOOL IN TOILET.MADE CLEAN & DRY.DIAPER ON. 0600 T102.9 ORALLY.REPORTED TO PA.BCX2 ORDERED. 07 TYLENOL 650MG PO GIVEN.BC X2 DONE. 0800 PT SWEATING.TEMP 101 NOW.
--- NOTE | 2016-08-15 13:34 | CT SCAN REPORT ---
CLINICAL HISTORY: This patient is a 71-year-old man with recurrent diverticulitis. He has an abscess between his sigmoid colon and the urinary bladder. A drainage catheter is requested by his surgeon Dr. Camarillo. PROCEDURES: 1. Limited CT of the pelvis. 2. Placement of a 12 Fr locking all-purpose drainage catheter under CT-guidance. PHYSICIANS: Dr. Shoemaker (attending). The attending radiologist was present during the procedure and related imaging, and reviewed the report. SEDATION: Moderate sedation with 2 mg Versed IV 100 micrograms fentanyl IV were administered under the supervision and direction of the attending radiologist (Dr. Shoemaker) who observed an independent trained observer who assisted in monitoring the patient's level of consciousness and physical status throughout the procedure. Total, continuous [id number] intra-service time from initial administration of sedation agents to the conclusion of personal contact by the supervising physician was 20 minutes. MEDICATIONS: 1. 2 mg of Versed and 100 micrograms of fentanyl were administered. 2. 10 mL of 1% lidocaine SQ. COMPLICATIONS: None. ESTIMATED BLOOD LOSS: <5 mL SPECIMENS: Purulent fluid. TOTAL DLP: 525 mGy-cm. PROCEDURE NOTE: Informed consent was obtained from the patient prior to the procedure. During this process, the procedure and potential alternatives were explained along with the intended outcome and benefits. The risks of the procedure, including the possibility of an unsuccessful procedure, as well as the risk of not doing the procedure, were discussed. The patient was given the opportunity to ask questions regarding the procedure and appeared competent to make decisions. A signed consent form documenting this discussion was placed in the medical record. A time-out procedure was performed. The patient was placed in the supine position on the CT table. A limited CT of the pelvis was performed to localize the collection and choose appropriate needle access entry point and trajectory. The abdomen was prepped and draped in usual sterile fashion. The skin and subcutaneous tissues were anesthetized with lidocaine. Under CT-guidance, N 18-gauge 15 cm [employer] needle was incrementally advanced into the pelvic fluid collection between the sigmoid colon and the bladder. Great care was used to avoid adjacent structures. purulent fluid was aspirated. A 0.035 in Amplatz super stiff wire was advanced through the needle and coiled in the fluid collection. The needle was removed, the tract was dilated with 8 and 10 Icelandic fascial dilators, and then a 12 Fr locking all-purpose was advanced over the wire into the collection. Catheter position within the fluid collection was confirmed by CT evaluation. The wire was removed from the catheter and the tip was coiled within the fluid collection, again confirmed by CT evaluation. The drain was sutured to skin with 2-0 nylon suture. 60 mL of grossly purulent material was aspirated. A sample of this was sent for culture and sensitivities. The catheter was left up to a gravity drainage bag. Samples were sent for microbiology. FINDINGS: 1. Fluid collection located in the midline pelvis between the sigmoid colon and the urinary bladder with CT appearance of infected fluid. 2. Aspiration of thick, purulent fluid from the collection. 3. Successful placement of a 12 Fr locking all-purpose drainage catheter into the fluid collection. IMPRESSION: Successful drainage of a pelvic fluid collection and placement of a drainage catheter. PLAN: 1. The patient was stable after the procedure and was transferred to the interventional recovery area. The patient will be transferred back to his room when stable by sedation protocol. 2. The tube should be open to external gravity drainage via drainage bag. 3. Tube should be flushed 3 times daily with 10 mL sterile saline.
--- NOTE | 2016-08-15 14:00 | NUR ---
TEMP 102.7, YAZMIN CUENCA NOTIFIED, TYLENOL GIVEN, CONTINUE TO MONITOR
[2016-08-15 14:38] VITALS: BP 122/66
--- NOTE | 2016-08-15 19:58 | NUR ---
PTS TEMP 101.3. NOTIFIED SURGICAL PA. PER SURGICAL PA GIVE 650 PO TYLENOL AND 600MG PO MOTRIN AT THIS TIME. WILL RECHECK TEMP IN ONE HOUR.
[2016-08-15 22:48] VITALS: BP 110/60
[2016-08-16 06:30] VITALS: BP 108/64
--- NOTE | 2016-08-16 07:21 | PN- General Surgery ---
See Addendum Subjective Subjective: No acute events overnight. Tmax 102.7 yesterday, afebrile this morning. Patient admits to ongoing lower abdominal discomfort that is similar to previous. Denies any nausea or emesis. Tolerating sips of clears. Denies any fevers, chest pain, or SOB. Since drain placement he has been able to void freely and has not been incontinent. Denies any dysuria. He is passing flatus and last bowel movement yesterday. Objective Vital Signs and I&Os Vital Signs Date Time Temp Pulse Resp B/P B/P Pulse O2 O2 Flow FiO2 Mean Ox Delivery Rate 08/16 0630 97.8 70 18 108/64 95 Room Air 08/15 2248 98.4 78 18 110/60 97 08/15 2052 99.9 08/15 2052 99.9 08/15 1956 101.3 08/15 1945 101.3 08/15 1939 Room Air Room Air 08/15 1537 100.2 08/15 1438 102.7 81 20 122/66 98 08/15 1409 102.7 08/15 1115 100.2 08/15 1053 90 122/70 08/15 1052 90 122/70 08/15 0820 101.0 08/15 0820 101.0 08/15 0721 102.9 Intake & Output 08/16 0800 08/16 0000 08/15 1600 08/15 0800 08/15 0000 08/14 1600 Intake Total 1280 1100 8035 008 8631 Output Total 50 Balance 1280 1100 1050 620 950 Intake, IV 380 584 6672 500 1000 Intake, Oral 480 200 50 120 Number 2 Bowel Movements Output, Urine 50 Patient 215 lb 219 lb Weight Weight Reported by Patient Reported by Patient Measurement Method Physical Exam: Afebrile, VSS. General: A&O x 3. Lying comfortably in bed in NAD. Cardiac: RRR, no murmur appreciated. Pulmonary: CTAB, no wheezes, rales, or rhonchi. Abdominal: Soft, obese. + BS. Prior midline scar noted with multiple known ventral hernias, non tender and reducible. Mild lower abdominal tenderness to palpation. LLQ drain in place. Ext: Warm bilaterally. Calves soft and nontender bilaterally. Assessment/Plan Assessment/Plan 71 y/o male w/ PMHx of HTN, BPH, GERD, Anxiety, rls, and RA admitted with recurrent severe chronic diverticulitis with abscess s/p IR drain placement yesterday. Associated bladder dysfunction has resolved s/p drain placement and patient is currently afebrile. - Clear liquid diet - Continue IVF - Continue IV abx - Rocephin/Flagyl - F/u am labs - Blood cultures pending - F/u drain cultures - Urine culture prelim negative - Monitor drain output - Flush drain TID w/ 10 cc ml Saline - ? continue Prednisone/plaquenil - DVT ppx - HSQ - will d/w Dr. Camarillo Core Measures/Miscellaneous Venous Thromboembolism VTE Risk Factors: Age > 40, Obesity VTE Contraindications: No Contraindications VTE Diagnosis: No VTE Type: NONE VTE Confirmed by (Test): NONE Beta Luis F Is Beta Ulis F a Home Med? No Antibiotics Is Patient on Antibiotics? Yes If Yes: infection
[2016-08-16 08:19] LABS: ABSOLUTE BASOPHIL COUNT 0 /CUMM (0.0-0.2); ABSOLUTE EOSINOPHIL COUNT 0 /CUMM (0.0-0.7); ABSOLUTE GRANULOCYTE CT 11.2 /CUMM (1.4-6.5); ABSOLUTE LYMPH COUNT 0.8 /CUMM (1.2-3.4); ABSOLUTE MONOCYTE COUNT 0.3 /CUMM (0.10-0.60); BASOPHIL % 0.1 % (0.0-2.0); EOSINOPHIL % 0.3 % (0-5); GRANULOCYTE % 90.5 % (42.2-75.2); HEMATOCRIT 27.8 % (42-52); MEAN CORPUSCULAR HGB 29.7 PG (27.0-31.0); MEAN CORPUSCULAR HGB CONC 33.1 G/DL (33.0-37.0); MEAN CORPUSCULAR VOLUME 89.7 FL (80.0-94.0); MEAN PLATELET VOLUME 7.1 FL (7.4-10.4); PLATELET COUNT 286 /CUMM (130-400); RBC DISTRIBUTION WIDTH 15.3 % (11.5-14.5); WHITE BLOOD CELL COUNT 12.4 /CUMM (4.8-10.8)
[2016-08-16 13:52] VITALS: BP 106/60
[2016-08-16 22:26] VITALS: BP 94/60
[2016-08-17 07:54] VITALS: BP 90/58
--- NOTE | 2016-08-17 10:38 | PN- General Surgery ---
See Addendum Subjective Subjective: No acute overnight events reported. Was afebrile overnight. No reports of worsening pain but still acknowledges lower abdominal tenderness. Has had bm, has been voiding without difficulty. Denies chest pain, shorntess of breath and difficulty breathing. Denies nausea and vomitting. Objective Vital Signs and I&Os Vital Signs Date Time Temp Pulse Resp B/P B/P Pulse O2 O2 Flow FiO2 Mean Ox Delivery Rate 08/17 0915 70 106/58 08/17 0914 70 106/58 08/17 0754 98.6 74 20 90/58 93 Room Air 08/16 2226 99.1 67 18 94/60 97 Room Air 08/16 1352 99.4 85 18 106/60 94 Room Air Intake & Output 08/17 1600 08/17 0800 08/17 0000 08/16 1600 08/16 0800 08/16 0000 Intake Total 600 1005 8976 590 1682 Output Total 30 40 80 Balance 483 559 2568 770 1280 Intake, IV 600 525 600 800 800 Intake, Oral 480 550 50 480 Number 1 0 Bowel Movements Output, 30 40 80 Drainage Patient 215 lb Weight Physical Exam: Afebrile, VSS. General: A&O x 3. Lying comfortably in bed in NAD. Cardiac: RRR, no murmur appreciated. Pulmonary: CTAB, no wheezes, rales, or rhonchi. Abdominal: Soft, obese. + BS. Prior midline scar noted with multiple known ventral hernias, non tender and reducible. Mild lower abdominal tenderness to palpation. LLQ drain in place, no surrounding erythema, serous drainage noted around catheter. Ext: Warm bilaterally. Calves soft and nontender bilaterally. Assessment/Plan Assessment/Plan Assessment/Plan 71 y/o male w/ PMHx of HTN, BPH, GERD, Anxiety, rls, and RA admitted with recurrent severe chronic diverticulitis with abscess s/p IR drain placement two days ago. Associated bladder dysfunction has resolved s/p drain placement and patient is currently afebrile. - Clear liquid diet - Continue IV abx - Rocephin/Flagyl - Blood cultures pending, day one reporting no growth - F/u drain culture sensitivities - Urine culture prelim negative - Monitor drain output - Flush drain TID w/ 10 cc ml Saline - Continue Prednisone/plaquenil - DVT ppx - HSQ - Discharge planning: Home with services, ? convert to po abx prior to discharge - will d/w Dr. [place] Core Measures/Miscellaneous Venous Thromboembolism VTE Risk Factors: Age > 40, Obesity VTE Contraindications: No Contraindications VTE Diagnosis: No VTE Type: NONE VTE Confirmed by (Test): NONE Beta Luis F Is Beta Luis F a Home Med? No Antibiotics Is Patient on Antibiotics? Yes If Yes: infection
[2016-08-17 14:41] VITALS: BP 98/54
[2016-08-17 22:18] VITALS: BP 100/60
--- NOTE | 2016-08-17 23:51 | NUR ---
ASSISTED PT TO BATHROOM AT 2030. STANDING IN DOORWAY TO ROOM PT USED TOILET. PT ATTEMPTED TO GRAB DOOR HANDLE. THIS RN OPENED DOOR TO BATHROOM TO FIND PT SITTING ON TOILET. PT CLAIMED TO HAVE FALLEN ON THE FLOOR AND GOTTEN BACK UP. THIS RN WAS PRESENT THROUGHOUT TOILETING. PT UNABLE TO GET UP WITHOUT ASSISTANCE. NO EVIDENCE OF FALL. PT AFTER INCIDENT REFERRING TO PREVIOUS CLAIM OF FALL "NEAR FALL." SURGICAL PA AWARE. AFTER TOILETING, PT ASSISTED TO BED, BED ALARM PLUGGED IN AND CALL CHILD WITHIN REACH.
[2016-08-18 06:29] VITALS: BP 110/60
--- NOTE | 2016-08-18 09:05 | PN- General Surgery ---
See Addendum Subjective Subjective: HD#4 S/P IR DRAINAGE FOR PERF DIVERTIC ABSCESS LESS PAIN TODAY TOLERATING LRD DIET +BM AFEBRILE X24HR Objective Vital Signs and I&Os Vital Signs Date Time Temp Pulse Resp B/P B/P Pulse O2 O2 Flow FiO2 Mean Ox Delivery Rate 08/18 0629 98.1 70 20 110/60 93 Room Air 08/17 2218 98.3 70 20 100/60 91 Room Air 08/17 1441 98.1 62 20 98/54 94 Room Air 08/17 0915 70 106/58 08/17 0914 70 106/58 Intake & Output 08/18 1600 08/18 0800 08/18 0000 08/17 1600 08/17 0800 08/17 0000 Intake Total 120 140 772 044 0642 Output Total 30 Balance 120 140 930 600 975 Intake, IV 130 450 600 525 Intake, Oral 120 10 480 480 Number 1 0 Bowel Movements Output, 30 Drainage Physical Exam: CV; RRR LUNGS: CLEAR ABD: SOFTLY DISTENDED TENDER TO LOWER ABD PALP PERC DRAIN IN PLACE WITH SEROSANGUINOUS DRAINAGE EXT: WARM, PULSES PRESENT Assessment/Plan Assessment/Plan SURGICFAL STABLE PLAN F/U AM LABS F/U CX'S SENSITIVITYPROBALE D/C WITH SERVICES TODAY Core Measures/Miscellaneous Venous Thromboembolism VTE Risk Factors: Age > 40, Obesity VTE Contraindications: No Contraindications VTE Diagnosis: No VTE Type: NONE VTE Confirmed by (Test): NONE Beta Luis F Is Beta Luis F a Home Med? No Antibiotics Is Patient on Antibiotics? Yes If Yes: infection
[2016-08-18 09:11] LABS: ABSOLUTE BASOPHIL COUNT 0 /CUMM (0.0-0.2); ABSOLUTE EOSINOPHIL COUNT 0.1 /CUMM (0.0-0.7); ABSOLUTE GRANULOCYTE CT 5.6 /CUMM (1.4-6.5); ABSOLUTE LYMPH COUNT 1.6 /CUMM (1.2-3.4); ABSOLUTE MONOCYTE COUNT 0.2 /CUMM (0.10-0.60); BASOPHIL % 0.4 % (0.0-2.0); EOSINOPHIL % 1.6 % (0-5); GRANULOCYTE % 73.8 % (42.2-75.2); HEMATOCRIT 29.4 % (42-52); MEAN CORPUSCULAR HGB 29.4 PG (27.0-31.0); MEAN CORPUSCULAR VOLUME 89.2 FL (80.0-94.0); MEAN PLATELET VOLUME 7.9 FL (7.4-10.4); PLATELET COUNT 363 /CUMM (130-400); RBC DISTRIBUTION WIDTH 15.4 % (11.5-14.5); WHITE BLOOD CELL COUNT 7.6 /CUMM (4.8-10.8)
--- NOTE | 2016-08-18 09:34 | Patient Discharge Instructions ---
Discharge Instructions General Discharge Information You were seen/treated for: PERFORATED DIVERTICULAR ABSCESS You had these procedures: INTERVENTIONAL RADIOLOGY DRAINAGE AND PLACEMENT OF INDWELLING ABDOMINAL CATHETER Watch for these problems: TEMP>101.5, CHANGE IN DRAIN COLOR, INCREASED DRAINAGE IN DRAIN BAG, INCREASED PAIN No bath, but you may shower: Yes Special Instructions: TAKE CIPRO 500MG TWICE A DAY WITH FLAGYL 500MG THREE TIMES PER DAY. BOTH WILL CONTINUE FOR ONE WEEK F/U WITH DR LOCO IN ONE WEEK Diet Recommended Diet: Low Residue Activity Activity Limited to: Weight bear as tolerated Other activity limits: NO STRENUOUS ACTIVITY Acute Coronary Syndrome Inclusion Criteria At DC or during hospital stay patient has or had the following: ACS DIAGNOSIS No Discharge Core Measures Meds if any: Prescribed or Continued at Discharge Meds if any: NOT Prescribed or Continued at Discharge Congestive Heart Failure Inclusion Criteria At DC or during hospital stay patient has or had the following: CHF DIAGNOSIS No Discharge Core Measures Meds if any: Prescribed or Continued at Discharge Meds if any: NOT Prescribed or Continued at Discharge Cerebrovascular accident Inclusion Criteria At DC or during hospital stay patient has or had the following: CVA/TIA Diagnosis No Discharge Core Measures Meds if any: Prescribed or Continued at Discharge Meds if any: NOT Prescribed or Continued at Discharge Venous thromboembolism Inclusion Criteria VTE Diagnosis No VTE Type NONE VTE Confirmed by (Test) NONE Discharge Core Measures - Per Current guidelines, there needs to be overlap - treatment for the first 5 days of Warfarin therapy. - If discharged on Warfarin prior to 5 days of - overlap therapy, the patient will need to be - assessed for post discharge needs including - *Post discharge parental anticoagulation - *Warfarin and/or parental anticoagulation education - *Follow up date to check INR post discharge At least 5 days overlap therapy as Inpatient No Meds if any: Prescribed or Continued at Discharge Note: Overlap Therapy is Warfarin and Anticoagulant Meds if any: NOT Prescribed or Continued at Discharge
[2016-08-18] MEDS ORDERED: NYSTATIN100000 UNI PO (09:38)
[2016-08-18 10:51] VITALS: BP 100/60
--- NOTE | 2016-08-18 11:12 | Surgical Discharge Summary ---
Visit Information Visit Dates Admission Date: 08/14/16 Discharge Date: 08/18/16 History of Present Illness Chief Complaint: ABDOMINAL PAIN AND URINARY INCONTINENCE Medical History Neurological: migraine, RESTLESS LEG SYNDROME anxiety post polio syndrome EENT: dental caries with recent tooth extraction Cardiovascular: angina Respiratory: asthma, obstructive sleep apnea Gastrointestinal: diverticulitis (intestinal resections.) Musculoskeletal: degen joint disease, rheumatoid arthritis, currently scheduled for cervical spine surgery 09/01/16 Psychiatric: anxiety Endocrine: hypothyroidism, obesity, DIABETES TYPE II History of MRSA: No History of VRE: No History of CDIFF: No Isolation History: Standard Pneumonia Vaccine: 10/03/13 Surgical History Pertinent Surgical History: cholecystectomy, hernia repair-ventral, small bowel resection for Family History Relations & Conditions If Any: MOTHER (MYOCARDIAL INFARCTION). FATHER (lUNG CANCER). BROTHER (AL, stroke). SISTER (diabetes). Psychosocial History Where Do You Live? Home Who Do You Live With? Spouse Services at Home: None What is Your Primary Language? Occitan ETOH Use: denies use Review of Systems: NOT ASSESSED AT D/C Hospital Course Course Attending Physician: BERONICA ADAN,BAILEE Nuñez Primary Care Physician: ROBY DASH MD Hospital Course: ADMITTED FOR BOWEL REST AND IV ABX. HE UNDERWENT PERCUTANEOUS DRAINAGE OF RECURRENT SIGMOID DIVERTICULAR ABSCESS BY INTERVENTIONAL RADIOLOGY. OVER THE COURSE OF THE NEXT THREE DAYS, HIS PAIN RESOLVED, URINARY SYMPTOMS RESOLVED AND FEVERS/WBC NORMALIZED. HIS ABX TAILORED TO CULTURES AND DISCHARGED HOME WITH VISITING NURSING FOR DRAIN MANAGEMENT. Allergies: Coded Allergies: methotrexate (Severe, BREATHING PROBLEMS 08/14/16) hydrocodone (UNKNOWN 08/14/16) hydrochlorothiazide (From Dyazide) (Severe, LETHARGIC 08/14/16) triamterene (From Dyazide) (Severe, LETHARGIC 08/14/16) Uncoded Allergies: MAXIDINE (UNKNOWN 09/22/13) Significant Procedures: PERCUTANEOUS DRAINAGE OF PELVIC/DIVERTICULAR ABSCESS Disposition Summary Disposition Principal Diagnosis: SIGMOID DIVERTICULITIS WITH ABSCESS Additional Diagnosis: RHEUMATOID ARTHRITIS Discharge Disposition: home health services Discharge Instructions General Discharge Information Code Status: Full Code Patient's Diet: REGULAR LOW RESIDUAL Patient's Activity: SELF LIMITED Follow-Up Instructions/Appts: TWO WEEKS. Medications at Discharge Discharge Medications: Continue taking these medications: Aspirin (Ecotrin*) 81 MG TABLET.DR 1 Tablet ORAL Every night Comments: NOT TAKEN WHILE IN HOSPITAL Tamsulosin HCl (Flomax) 0.4 MG CAP.ER.24H 2 Capsule ORAL Every night Comments: Last Taken: 08/18/16 Time: 1030 AM Omeprazole Magnesium (Prilosec Otc) 20 MG TABLET.DR 1 Tablet ORAL DAILY Comments: Last Taken: 08/18/16 Time: 7 AM Metoprolol Succ XL (Toprol XL) 50 MG TAB.ER.24H 1 Tablet ORAL Every night Comments: Last Taken: 08/17/16 Time: 9 AM Prednisone (Prednisone) 5 MG TABLET 1 Tablet ORAL DAILY Comments: Last Taken: 08/18/16 Time: 1030 AM Hydroxychlorquine (Plaquenil) 200 MG TABLET 1 Tablet ORAL TWICE DAILY Comments: Last Taken: 08/18/16 Time: 1030 Levothyroxine Sodium (Levothyroxine Sodium) 100 MCG TABLET 1 Tablet ORAL DAILY Qty = 30 Comments: Last Taken: 08/18/16 Time: 7 AM Lorazepam (Ativan) 2 MG TABLET 1 Tablet ORAL 4 TIMES A DAY Comments: Last Taken: 08/18/16 Time: 1030 AM Oxycodone HCl (Oxycodone HCl) 5 MG TABLET 1 Tablet ORAL 5 TIMES A DAY Comments: Last Taken: 08/18/16 Time: 1030 AM Escitalopram Oxalate (Escitalopram Oxalate) 20 MG TABLET 1 Tablet ORAL DAILY Comments: Last Taken: 08/18/16 Time: 1030 Docusate Sodium (Colace) 100 MG CAPSULE 2 Capsule ORAL TWICE DAILY Comments: NOT GIVEN Sennosides (Senna) 8.6 MG TABLET 1 Tablet ORAL TWICE DAILY Comments: NOT GIVEN Ropinirole HCl (Ropinirole HCl) 1 MG TABLET 1 Tablet ORAL 1200 Comments: Last Taken: 08/18/16 Time: 1 PM Ropinirole HCl (Requip) 2 MG TABLET 1 Tablet ORAL 1600 Comments: Last Taken: 08/17/16 Time: 4 PM Clonazepam (Clonazepam) 1 MG TABLET 1 Tablet ORAL Every night Comments: Last Taken: 08/17/16 Time: 10 PM Lactulose (Generlac) 10 GRAM/15 ML SOLUTION 15 Milliliters ORAL DAILY Comments: NOT GIVEN Butalbital/Aspirin/Caffeine (Vvdohwovtw-Hod-Loiynjsp Cap) 50 MG-325 MG-40 MG CAPSULE 1 Tablet ORAL DAILY as needed for HEADACHE Qty = 30 Comments: NOT GIVEN Start taking the following new medications: Nystatin (Nystatin) 100,000 UNIT/ML ORAL.SUSP 5 Milliliters ORAL 4 TIMES A DAY Qty = 120 No Refills Comments: Last Taken: 08/18/16 Time: 1030 AM Fentanyl (Fentanyl) 25 MCG/HOUR PATCH.TD72 1 Patch On the skin EVERY 48 HOURS (Every 2 days) Qty = 10 No Refills Comments: Last Taken: 08/18/16 Time: 1030 AM Oxycodone HCl (Oxycodone HCl) 5 MG TABLET 1-2 Milligram ORAL EVERY 4 HOURS NEEDED as needed for PAIN SCALE 7-10 ( SEVERE) Qty = 36 No Refills Comments: Last Taken: 08/18/16 Time: 1030 AM Ciprofloxacin HCl (Cipro) 500 MG TABLET 1 Tablet ORAL TWICE DAILY Qty = 14 No Refills Comments: Last Taken: 08/18/16 Time: 1 PM Metronidazole (Flagyl) 500 MG TABLET 1 Tablet ORAL THREE TIMES DAILY Qty = 21 No Refills Comments: TO START TONIGHT 08/18/16 Copies To: ROBY DASH MD
[2016-08-18] MEDS ORDERED: OXYCODONE HCL5 M1 PO (11:17)
[2016-08-18] MEDS ORDERED: CIPRO500 M1 PO (11:17)
[2016-08-18] MEDS ORDERED: FENTANYL1 EAC2 TOP (11:17)
[2016-08-18] MEDS ORDERED: FLAGYL500 MG PO (11:17)
== END 2016-08-18 14:00 | disposition home health service (06) | DRG 392 ==
LOC: ERH 11:34 → 2NA 16:22 → ERHI 16:22 → ENRESERV 16:34 → ENTRNSPT 17:50 → 2NA 18:08 → CMPTRNSPT 18:31 → ENPENDDIS 08-18 11:28 → 2NA 08-18 14:00
PROVIDERS: Emergency Medicine; Nurse Practitioner; Physician Assistant; Physician Assistant Surgical; ADMIT Surgery
PROC: 0D9N30Z Drainage of Sigmoid Colon with Drainage Device, Percutaneous Approach (ICD-10-PCS; principal; 2016-08-15)
DX: K57.20 Diverticulitis of large intestine with perforation and abscess without bleeding (principal); E11.9 Type 2 diabetes mellitus without complications; M06.9 Rheumatoid arthritis, unspecified; K43.0 Incisional hernia with obstruction, without gangrene; E03.9 Hypothyroidism, unspecified; E66.9 Obesity, unspecified; Z68.38 Body mass index [BMI] 38.0-38.9, adult; G25.81 Restless legs syndrome; G47.33 Obstructive sleep apnea (adult) (pediatric); J45.909 Unspecified asthma, uncomplicated; K21.9 Gastro-esophageal reflux disease without esophagitis; F41.9 Anxiety disorder, unspecified; Z86.12 Personal history of poliomyelitis
CPT/HCPCS: 2NASP; 87075; 74177; 75989; 81001; 82436; 87040; 87071; 87086; 87147; 93005; 93010; 96374; 96375; 97110-GO; 97116-GO; 97161-GP; 97530-GO; J0696; J1644; J2405; J7042; J7512

== ENCOUNTER 2016-09-02 10:44 | Emergency (ER) | payer OTHER, MEDICARE ==
[~2016-09-02] VITALS: Ht 160 cm; Wt 93.0 kg
[~2016-09-02 10:44] MED LIST changes: +AMOX-CLAV 875-1 EACH PO; +BUTALBITAL-ASA1 EACH PO; +CIPRO500 M1 PO; +CLONAZEPAM1 M2 PO; +COLACE100 M1 PO; +FENTANYL1 EAC2 TOP; +FLAGYL500 MG PO; +GENERLAC10 GM/151 PO; +NYSTATIN100000 UNI PO; +REQUIP2 M1 PO; +ROPINIROLE HCL1 MG PO; +SENNA8.6 M3 PO
--- NOTE | 2016-09-02 10:56 | ED GI/GU/ABDOMINAL COMPLAINT ---
History of Present Illness General Chief Complaint: General Adult Stated Complaint: SENT BY DR. LOCO FOR CT OF ABD Source: patient, old records Exam Limitations: no limitations Vital Signs & Intake/Output Vital Signs & Intake/Output Vital Signs Date Time Temp Pulse Resp B/P B/P Pulse O2 O2 Flow FiO2 Mean Ox Delivery Rate 09/02 1530 99.2 88 16 101/64 95 Room Air 09/02 1356 99.3 93 14 97/56 95 Room Air 09/02 1052 98.3 84 18 109/79 100 Room Air Allergies Coded Allergies: methotrexate (Severe, BREATHING PROBLEMS 08/14/16) hydrocodone (UNKNOWN 08/14/16) hydrochlorothiazide (From Dyazide) (Severe, LETHARGIC 08/14/16) triamterene (From Dyazide) (Severe, LETHARGIC 08/14/16) Uncoded Allergies: MAXIDINE (UNKNOWN 09/22/13) Reconcile Medications Aspirin (Ecotrin*) 81 MG TABLET.DR 1 TAB PO QPM HEART HEALTH (Reported) Butalbital/Aspirin/Caffeine (Qwpzzgjvfw-Avt-Ytsllmmu Cap) 50 MG-325 MG-40 MG CAPSULE 1 TAB PO DAILY PRN HEADACHE (Reported) Ciprofloxacin HCl (Cipro) 500 MG TABLET 1 TAB PO BID INFECTION Clonazepam 1 MG TABLET 1 TAB PO QPM ANXIETY (Reported) Docusate Sodium (Colace) 100 MG CAPSULE 2 CAP PO BID CONSTIPATION (Reported) Escitalopram Oxalate 20 MG TABLET 1 TAB PO DAILY MENTAL HEALTH (Reported) Fentanyl 25 MCG/HOUR PATCH.TD72 1 PAT TOP Q48 PAIN CONTROL Hydroxychlorquine (Plaquenil) 200 MG TABLET 1 TAB PO BID RA (Reported) Lactulose (Generlac) 10 GRAM/15 ML SOLUTION 15 ML PO DAILY CONSTIPATION ( Reported) Levothyroxine Sodium 100 MCG TABLET 1 TAB PO DAILY thyroid (Reported) Lorazepam (Ativan) 2 MG TABLET 1 TAB PO 4 TIMES/DAY ANXIETY (Reported) Metoprolol Succ XL (Toprol XL) 50 MG TAB.ER.24H 1 TAB PO QPM HTN (Reported) Metronidazole (Flagyl) 500 MG TABLET 1 TAB PO TID INFECTION Nystatin 100,000 UNIT/ML ORAL.SUSP 5 ML PO 4 TIMES/DAY INFECTION Omeprazole Magnesium (Prilosec Otc) 20 MG TABLET.DR 1 TAB PO DAILY GI ( Reported) Oxycodone HCl 5 MG TABLET 1 TAB PO 5 TIMES A DAY PAIN (Reported) Oxycodone HCl 5 MG TABLET 1-2 MG PO Q4P PRN PAIN SCALE 7-10 (SEVERE) Prednisone 5 MG TABLET 1 TAB PO DAILY STEROID (Reported) Ropinirole HCl 1 MG TABLET 1 TAB PO 1200 RESTLESS LEGS (Reported) Ropinirole HCl (Requip) 2 MG TABLET 1 TAB PO 1600 RESTLESS LEGS (Reported) Sennosides (Senna) 8.6 MG TABLET 1 TAB PO BID CONSTIPATION (Reported) Tamsulosin HCl (Flomax) 0.4 MG CAP.ER.24H 2 CAP PO QPM PROSTATE (Reported) Triage Note: PT TO ED FOR WORSENING ABD PAIN AND INCREASING DRAINAGE. PT STATING HE HAD AN ABD ABSCESS APPROX 3 WEEKS AGO AND HAD A DRAIN PLACED, SAW DR LOCO SUNDAY FOR EVAL AND WAS PLACED ON ABX. PT REPORTING FEVER YESTERDAY OF 101.4 AND WORSENING PAIN WELL "MORE DRAINAGE THAN NORMAL." Triage Nurses Notes Reviewed? yes Onset: Gradual Duration: getting worse Timing: recent history Quality/Severity: sharpness, severe, stabbing Severity Numbers: 10 Radiation: no radiation Activities at Onset: none HPI: Patient is a 71-year-old male with a past medical history of chronic diverticulitis with abscess, asthma, obstructive sleep apnea, diabetes type 2, hypothyroidism who was admitted to [facility] approximately 3 weeks ago for concerns of diverticulitis and abscess where patient had interventional radiology place a PERCUTANEOUS drain for concerns of pericolonic abscess patient ALSO received IV antibiotics. Patient's surgeon is Dr. Loco in which patient was concerned of fevers and worsening drainage from the site and which he was strongly advised to present to the emergency room. Last bowel movement was in the last 24 hours no blood no melena noted. Denies any cough shortness of breath chest pain. Patient does have nausea without emesis. Patient did eat a half of a donut morning without emesis (TIM ARCE,SHAISTA) Past History Travel History Traveled to [place] past 21 day No Medical History Any Pertinent Medical History? see below for history Neurological: migraine, RESTLESS LEG SYNDROME anxiety post polio syndrome EENT: dental caries with recent tooth extraction Cardiovascular: angina Respiratory: asthma, obstructive sleep apnea Gastrointestinal: diverticulitis (intestinal resections.), "ABSCESS IN MY ABD" Hepatic: NONE Renal: NONE Musculoskeletal: degen joint disease, rheumatoid arthritis, currently scheduled for cervical spine surgery 6/30/17 Psychiatric: anxiety Endocrine: hypothyroidism, obesity, DIABETES TYPE II History of MRSA: No History of VRE: No History of CDIFF: No Surgical History Surgical History: cholecystectomy, hernia repair-ventral, small bowel resection for Psychosocial History Who do you live with Spouse Services at Home None What is your primary language Greek Tobacco Use: Quit >30 days ago ETOH Use: denies use Illicit Drug Use: denies illicit drug use Family History Family History, If Any: MOTHER (MYOCARDIAL INFARCTION). FATHER (lUNG CANCER). BROTHER ([place], stroke). SISTER (diabetes). Hx Contributory? No (SHAISTA ADEN) Review of Systems Review of Systems Constitutional: Reports: see HPI, fever. EENTM: Reports: no symptoms. Respiratory: Reports: no symptoms. Cardiovascular: Reports: no symptoms. GI: Reports: see HPI, abdominal pain, nausea. Genitourinary: Reports: no symptoms. Musculoskeletal: Reports: no symptoms. Skin: Reports: no symptoms. Neurological/Psychological: Reports: no symptoms. Hematologic/Endocrine: Reports: no symptoms. Immunologic/Allergic: Reports: no symptoms. All Other Systems: Reviewed and Negative (SHAISTA ADEN) Physical Exam Physical Exam General Appearance: no apparent distress, alert, mild distress Gastrointestinal: normal bowel sounds, NOTED PERCUTANEOUS DRAINE INDWELLING TO LEFT QUADRANT, NO SURROUNDING ERYTHEMA NOTED GENERALIZED POINT TENDERNESS MILD DISTENSION Comments: HEENT: Normal EENT exam Neck: Supple, no lymphadenopathy, normal range of motion without pain or tenderness Back: Nontender, no CVA tenderness. Cardiovascular: Regular rate and rhythms no murmurs rubs or gallops, normal JVP Respiratory: Chest nontender. No respiratory distress.breath sounds clear to auscultation bilaterally Extremity: No edema, no calf tenderness to palpation, normal and equal pulses. Neuro: Alert oriented x3, motor sensory normal, Skin: No appreciable rash on exposed skin, skin is warm and dry. Psych: Mood and affect is normal, memory and judgment is normal. Core Measures ACS in differential dx? No Severe Sepsis Present: No Septic Shock Present: No (SHAISTA ADEN) Progress Differential Diagnosis: AAA, AMI, appendicitis, biliary colic, bowel obstruction , colon cancer, cholecystitis, diverticulitis, epididymitis, gastritis, hepatitis, hernia, ischemic bowel, inflamm bowel dis, pancreatitis, prostatitis, peptic ulcer, PUD/GERD, perforated viscous, pyelonephritis, SBO, testicular torsion, ureterolithiasis, urinary retention, urethritis, UTI/pyelo Plan of Care: Orders Procedure Date/time Status LIPASE 09/02 115 Complete AMYLASE 09/02 115 Complete COMPREHENSIVE METABOLIC PANEL 09/02 114 Complete CBC WITHOUT DIFFERENTIAL 09/02 114 Complete BLOOD CULTURE 09/02 113 Active URINALYSIS 09/02 113 Complete PARTIAL THROMBOPLASTIN TIME 09/02 113 Complete PROTHROMBIN TIME 09/02 113 Complete LACTIC ACID 09/02 113 Complete TYPE & SCREEN (NOT X-MATCH) 09/02 113 Complete Laboratory Tests 09/02/16 1439: Lactic Acid Cancelled 09/02/16 1220: Urine Color YEL, Urine Clarity CLEAR, Urine pH 6.0, Ur Specific [place] 1.025, Urine Protein TRACE H, Urine Ketones NEG, Urine Nitrite NEG, Urine Bilirubin NEG, Urine Urobilinogen 0.2, Ur Leukocyte Esterase TRACE H, Ur Microscopic SEDIMENT EXAMINED, Urine RBC RARE, Urine WBC RARE, Ur Epithelial Cells MOD H, Urine Bacteria FEW H, Urine Mucus FEW, Urine Hemoglobin NEG, Urine Glucose NEG 09/02/16 115: Lactic Acid 1.5 09/02/16 115: Anion Gap 11, Estimated GFR > 60, BUN/Creatinine Ratio 22.5, Glucose 102 H, Calcium 8.8, Total Bilirubin 0.5, AST 20, ALT 31, Alkaline Phosphatase 54, Total Protein 6.5, Albumin 3.5, Globulin 3.0, Albumin/Globulin Ratio 1.2, Amylase 51, Lipase 34, PT 12.7 H, INR 1.21 H, APTT 28, CBC w Diff NO MAN DIFF REQ, RBC 3.91 L, MCV 90.4, MCH 29.5, RDW 18.1 H, MPV 7.8, Gran % 81.5 H, Lymphocytes % 10.0 L, Monocytes % 8.2, Eosinophils % 0.1, Basophils % 0.2, Absolute Granulocytes 7.4 H, Absolute Lymphocytes 0.9 L, Absolute Monocytes 0.7 H, Absolute Eosinophils 0, Absolute Basophils 0, PUBS MCHC 32.7 L Microbiology 09/02 1203 BLOOD: Blood Culture - RECD 09/02 115 BLOOD: Blood Culture - RECD 09/02/2016 1:35:08 PM reevaluation the patient he does have improvement of pain however he is still complaining of 10 out of 10 pain. Patient resting comfortably at bedside. I reviewed blood work with patient and which CT scan currently is pending 09/02/2016 2:23:58 PM I discussed patient with Dr. Loco who is in the emergency room in which he is also evaluating patient in which she states that he was able to flush the a percutaneous drain which she was aware of CT scan results and advised patient to continue with antibiotics and pain medication and indicates safely discharged and follow up in office. I discussed CT scan and blood work with patient and which he also agrees with disposition and plan. It is noted through medical reconciliation the patient yesterday received 90 tablets of oxycodone 5 and fentanyl patch and which I strongly advised patient to continue with his pain management regimen. Upon discharge patient looks well no apparent distress and will comply with discharge instructions and had no questions. Discussed disposition plan with Dr. Castro who agrees (TIM ARCE,SHAISTA) Diagnostic Imaging: Viewed by Me: CT Scan. Radiology Impression: SEE COMMENTS Initial ED EKG: none Comments: PATIENT: SAMUEL RUVALCABA PRESENT AGE: 71 PATIENT ACCOUNT NO: [id number] : 46 LOCATION: [facility] ORDERING PHYSICIAN: SHAISTA ARCE SERVICE DATE: 09/02/16 EXAM TYPE: CAT - CT ABD & PELVIS W IV CONTRAST EXAMINATION: CT ABDOMEN AND PELVIS WITH CONTRAST CLINICAL INFORMATION: History of diverticulitis with abscess. Percutaneous drain in place. COMPARISON: Multiple prior CT scans, the most recent on 08/14/2016. TECHNIQUE: Multidetector volumetric imaging was performed of the abdomen and pelvis before and after the IV administration of 95 mL of Optiray 320 intravenous contrast. Sagittal and coronal reformatted images were obtained on the technologist's workstation. DLP: 1202.26 mGy-cm FINDINGS: LUNG BASES: Limited images of lower thorax demonstrate a 4 mm right middle lobe noncalcified pulmonary nodule and a 3 mm pleural-based right lower lobe noncalcified pulmonary nodule. These are unchanged since 12/06/2014 CT scan. LIVER, GALLBLADDER, AND BILIARY TREE: Patient is status post cholecystectomy with dilatation of the CBD, unchanged. Chronic mild dilatation of the intrahepatic biliary ducts also seen. The liver is otherwise unremarkable. PANCREAS: Unremarkable SPLEEN: Unremarkable ADRENAL GLANDS: Unremarkable KIDNEYS AND URETERS: The kidneys are normal in size, shape, and attenuation. No hydronephrosis, hydroureter, or calculi seen. No perinephric stranding. GASTROINTESTINAL TRACT: Acute diverticulitis of the sigmoid colon with pericolonic fat stranding and thickening of the sigmoid colon wall again noted. There has been interval placement of a percutaneous drain within the abscess adjacent to the sigmoid colon. The abscess currently measures about 3.5 x 3.5 x 3.5 cm in diameter. A small amount of extraluminal air adjacent to the sigmoid colon is slightly less prominent than the comparison CT scan on 08/14/2016 and suggests microperforation as the result of acute diverticulitis. The inflammatory changes of the acute sigmoid diverticulitis extend to the dome of the bladder with mild perivesical fat stranding. However, the bladder wall is normal in thickness. Mild subcutaneous fat stranding along the course of the drainage catheter also seen in the lower left anterior abdominal wall. ABDOMINAL WALL: No significant hernia is appreciated. VASCULAR: Atherosclerotic calcifications of the abdominal aorta noted without aneurysmal dilatation. PELVIC VISCERA: Unremarkable OSSEOUS STRUCTURES: Multilevel degenerative changes of the lumbar spine, particularly at L2-L3 level noted with narrowing of intervertebral disc space and irregularity of the adjacent vertebral endplates and posterior disc osteophyte complex. IMPRESSION: Redemonstration of inflammatory changes of the acute sigmoid diverticulitis with a small amount of extraluminal air as a result of microperforation. There has been interval placement of a percutaneous draining catheter in the pericolonic abscess. The abscess currently measures about 3.5 cm in diameter, decreased from 5 cm on 08/14/2016. DICTATED BY: REBECA RAMOS MD DATE/TIME DICTATED:09/02/161423 SURVEY METHODOLOGIST:SUYAPA DATE/TIME TRANSCRIBED:09/02/161423 (SHAISTA ADEN) Departure Departure Disposition: HOME OR SELF CARE Condition: Stable Clinical Impression Primary Impression: Diverticulitis Secondary Impressions: Abdominal pain, Pericolonic abscess Referrals: HARDY ADAN,ROBY Esquivel (PCP/Family) Additional Instructions: As discussed continue previously prescribed pain medication and antibiotics and all your medications. Follow-up with your surgeon as directed and continue long term care. If symptoms worsen return to emergency room Departure Forms: Customer Survey General Discharge Information (SHAISTA ADEN) PA/TOTER Co-Sign Statement Statement: ED Attending supervision documentation- [x] I saw and evaluated the patient. I have also reviewed all the pertinent lab results and diagnostic results. I agree with the findings and the plan of care as documented in the PA's/TOTER's documentation. [x] I have reviewed the ED Record and agree with the PA's/TOTER's documentation. [] Additions or exceptions (if any) to the PAs/TOTER's note and plan are summarized below: [] (LOURDES ADAN,KEVIN Merrill)
[2016-09-02 12:23] LABS: ABSOLUTE BASOPHIL COUNT 0 /CUMM (0.0-0.2); ABSOLUTE EOSINOPHIL COUNT 0 /CUMM (0.0-0.7); ABSOLUTE GRANULOCYTE CT 7.4 /CUMM (1.4-6.5); ABSOLUTE LYMPH COUNT 0.9 /CUMM (1.2-3.4); ABSOLUTE MONOCYTE COUNT 0.7 /CUMM (0.10-0.60); BASOPHIL % 0.2 % (0.0-2.0); EOSINOPHIL % 0.1 % (0-5); GRANULOCYTE % 81.5 % (42.2-75.2); HEMATOCRIT 35.4 % (42-52); MEAN CORPUSCULAR HGB 29.5 PG (27.0-31.0); MEAN CORPUSCULAR HGB CONC 32.7 G/DL (33.0-37.0); MEAN CORPUSCULAR VOLUME 90.4 FL (80.0-94.0); MEAN PLATELET VOLUME 7.8 FL (7.4-10.4); PLATELET COUNT 239 /CUMM (130-400); RBC DISTRIBUTION WIDTH 18.1 % (11.5-14.5); RED BLOOD CELL CT 3.91 /CUMM (4.70-6.10); WHITE BLOOD CELL COUNT 9.1 /CUMM (4.8-10.8)
[2016-09-02 12:32] LABS: PT 12.7 SEC (9.4-12.5); PTT 28 SEC (25-37)
--- NOTE | 2016-09-02 14:41 | PN- General Surgery ---
Surgical Brief Attending Note Brief Attending Note: Patient sent in by me for c/o worsened abdominal pain. drain with stool. tender at exit site. wbc normal. CT reviewed in ER. drain in good postition. no need for emergent surgery. continue cares. drain flushed at bedside. it is patent. ok to d/c home. needs better pain control. f/u with me as arranged.
--- NOTE | 2016-09-02 15:03 | CT SCAN REPORT ---
EXAMINATION: CT ABDOMEN AND PELVIS WITH CONTRAST CLINICAL INFORMATION: History of diverticulitis with abscess. Percutaneous drain in place. COMPARISON: Multiple prior CT scans, the most recent on 08/14/2016. TECHNIQUE: Multidetector volumetric imaging was performed of the abdomen and pelvis before and after the IV administration of 95 mL of Optiray 320 intravenous contrast. Sagittal and coronal reformatted images were obtained on the technologist's workstation. DLP: 1202.26 mGy-cm FINDINGS: LUNG BASES: Limited images of lower thorax demonstrate a 4 mm right middle lobe noncalcified pulmonary nodule and a 3 mm pleural-based right lower lobe noncalcified pulmonary nodule. These are unchanged since 12/06/2014 CT scan. LIVER, GALLBLADDER, AND BILIARY TREE: Patient is status post cholecystectomy with dilatation of the CBD, unchanged. Chronic mild dilatation of the intrahepatic biliary ducts also seen. The liver is otherwise unremarkable. PANCREAS: Unremarkable SPLEEN: Unremarkable ADRENAL GLANDS: Unremarkable KIDNEYS AND URETERS: The kidneys are normal in size, shape, and attenuation. No hydronephrosis, hydroureter, or calculi seen. No perinephric stranding. GASTROINTESTINAL TRACT: Acute diverticulitis of the sigmoid colon with pericolonic fat stranding and thickening of the sigmoid colon wall again noted. There has been interval placement of a percutaneous drain within the abscess adjacent to the sigmoid colon. The abscess currently measures about 3.5 x 3.5 x 3.5 cm in diameter. A small amount of extraluminal air adjacent to the sigmoid colon is slightly less prominent than the comparison CT scan on 08/14/2016 and suggests microperforation as the result of acute diverticulitis. The inflammatory changes of the acute sigmoid diverticulitis extend to the dome of the bladder with mild perivesical fat stranding. However, the bladder wall is normal in thickness. Mild subcutaneous fat stranding along the course of the drainage catheter also seen in the lower left anterior abdominal wall. ABDOMINAL WALL: No significant hernia is appreciated. VASCULAR: Atherosclerotic calcifications of the abdominal aorta noted without aneurysmal dilatation. PELVIC VISCERA: Unremarkable OSSEOUS STRUCTURES: Multilevel degenerative changes of the lumbar spine, particularly at L2-L3 level noted with narrowing of intervertebral disc space and irregularity of the adjacent vertebral endplates and posterior disc osteophyte complex. IMPRESSION: Redemonstration of inflammatory changes of the acute sigmoid diverticulitis with a small amount of extraluminal air as a result of microperforation. There has been interval placement of a percutaneous draining catheter in the pericolonic abscess. The abscess currently measures about 3.5 cm in diameter, decreased from 5 cm on 08/14/2016.
[2016-09-02 15:30] VITALS: BP 101/64
== END 2016-09-02 15:31 ==
LOC: ERH 10:44
PROVIDERS: Physician Assistant
DX: K57.92 Diverticulitis of intestine, part unspecified, without perforation or abscess without bleeding (principal); K63.0 Abscess of intestine
CPT/HCPCS: 74177; 81001; 87040; 96374; 96375; 96376; J2405

== ENCOUNTER 2017-01-24 02:18 | Inpatient (IN) | payer OTHER, MEDICARE ==
[~2017-01-24] VITALS: Ht 160 cm; Wt 100.2 kg
[~2017-01-24 02:18] MED LIST changes: +MOVANTIK25 M1; +PROAIR HFA8.5 GM INH
[2017-03-01] MEDS ORDERED: FIORINAL 50-321 EACH PO (10:23)
[2017-03-01] MEDS ORDERED: LIDOCAINE1 EACH TOP (10:23)
[2017-03-01] MEDS ORDERED: MOVANTIK25 M1 PO (10:25)
[2017-03-01] MEDS ORDERED: KLONOPIN1 M1 PO (10:26)
[2017-03-07] MEDS ORDERED: ACETAMINOPHEN500 M4 PO (09:51)
--- NOTE | 2017-03-07 15:28 | Operative Report ---
Operative/Inv Procedure Report Surgery Date: 03/07/17 Name of Procedure: 1. Colostomy reversal 2. Small bowel resection 3. Extensive lysis of adhesions Pre-Operative Diagnosis: Diverticulitis status post Cuevas's procedure Post-Operative Diagnosis: Same Estimated Blood Loss: 50ml to 100ml Surgeon/College Coach: Marquise ADAN,Chacho Nuñez/Fior ARCE Anesthesia: general endotracheal tube Specimens: Small bowel Colostomy Operative Indication: Patient is a 72-year-old male with chronic pain due to rheumatoid arthritis. He presents for elective reversal of a colostomy that was performed due to chronic diverticulitis with abscess and colovesical fistula. Operative/Procedure Note Note: After consent is brought to the operating room laid supine. Gen. anesthesia was obtained and his abdomen was prepped and draped in lithotomy. A midline incision was made sharply through pre-existing scar. We came down to subcutaneous tissues with cautery and incised the fascia. The peritoneum was entered sharply. The wound was explored. There are multiple small bowel loops adherent to bilateral abdominal wall tissues. These were taken down with sharp dissection. There are multiple loops of small bowel tethered to the pelvis which were taken down sharply as well. In order to gain adequate exposure to the left abdomen [facility]ilical [facility] incision. I did this sharply. There was noted to be densely adherent and flattened piece of small bowel to the undersurface. The mucosa was visible signifying an enterotomy. There is quite a bit of damage so elected to perform small bowel resection. He had dissect the small bowel off of the fascia/mesh with sharp tedious dissection. Eventually got enough length on either side to perform an anastomosis. The ends of the enterotomy were divided with GIAs 80 stapler. The mesentery is divided with the LigaSure and small bowel passed off the field. The small bowel was then lined up side to side with 3-0 silk sutures. Enterotomies were made and [id number] anastomosis created with CARLITO stapler. The common enterotomy was then closed with a reload of the stapler. We then placed a Bookwalter retraction system. The rectum was dissected free. It was adherent to the bladder. This took quite a bit of time to free it up. Once were happy the dissection I then took down the colostomy by making an ellipse of skin around it. Subcutaneous tissues tissues dissected with cautery. There was chronic inflammatory changes made the dissection difficult. Eventually able to dunk it back in the cavity and dissected from the underside. We then decided to transect the portion of the colon traversing the abdominal wall. The mesentery was taken with the LigaSure device. Automatic pursestring was then placed on the left colon and fired. The stoma was then excised and passed off the field. The left colon was sized to a 31 EEA stapler. The anvil was placed in and cinched down. The fatty tissue overlying the posterior bladder was then taken down with cautery. I then broke scrub and went below. Rigid proctoscopy is performed. We passed the EEA stapler up to the rectal stump and performed end- to-end anastomosis. 2 intact donuts were seen. Testing of the anastomosis under water revealed no evidence of leak. I then scrubbed back in the perineal cavity was irrigated normal saline. The anastomoses on both small bowel and colorectal were evaluated and looked to be healthy and viable without tension. The stoma site was then closed in 2 layers of 0 Maxon suture. Midline incision was closed with running 0 Maxon suture. Skin incisions closed with lacey and the stoma site left open for packing centrally. Sterile dressings were applied. Sponge and needle counts are correct CC: Su ADAN,Mary Shaver
[2017-03-07 18:00] VITALS: BP 128/70
[2017-03-07 20:07] VITALS: BP 130/58
[2017-03-07 22:02] VITALS: BP 110/68
[2017-03-08 00:20] VITALS: BP 110/60
[2017-03-08 04:16] VITALS: BP 110/64
--- NOTE | 2017-03-08 07:41 | PN- General Surgery ---
See Addendum Subjective Subjective: Patient comfortable, pain is manageable, expected postop pain. No nausea no vomiting. No flatus, he is tolerating clears. There was some drainage through the dressing however this has stopped Objective Vital Signs and I&Os Vital Signs Date Time Temp Pulse Resp B/P B/P Pulse O2 O2 Flow FiO2 Mean Ox Delivery Rate 03/08 415 98.6 74 20 110/64 93 Nasal 2.0L Cannula 03/08 0020 98.3 72 20 110/60 92 Nasal 2.0L Cannula 03/08 0000 Nasal 2.0L Cannula 03/07 2300 78 110/68 03/07 2202 99.0 78 20 110/68 95 Nasal 2.0L Cannula 03/07 2006 98.3 76 20 130/58 95 Room Air 03/07 1823 97 Nasal 2.0L Cannula 03/07 1800 98.2 81 16 128/70 97 Nasal 2.0L Cannula Intake & Output 03/08 0800 03/08 0000 03/07 1600 03/07 0800 03/07 0000 03/06 1600 Intake Total Output Total 700 650 Balance -700 -650 Output, Urine 700 650 Patient 221 lb Weight Weight Reported by Patient Measurement Method Physical Exam: Well-developed well-nourished no apparent distress. HEENT: Atraumatic, extraocular motion intact Neck: Supple, no lymphadenopathy Heart: Regular rate and rhythm no murmurs Respiratory: No respiratory distress clear to auscultation bilateral Abdomen: Dressings intact, left lower dressing has dry blood noted, no active drainage. Tenderness throughout the midline and left lower quadrant of the abdomen as appropriate. Hypoactive bowel sounds noted. Extremities: No edema, no calf pain Neuro: Alert and oriented x3 Psych: Mood affect normal, normal memory normal judgment. Skin: Warm and dry, no rash on exposed skin Results Last 48 Hours of Labs: Laboratory Tests 03/08 627 Chemistry Sodium Pending Potassium Pending Chloride Pending Carbon Dioxide Pending Anion Gap Pending BUN Pending Creatinine Pending BUN/Creatinine Ratio Pending Hematology CBC w Diff Pending WBC Pending RBC Pending Hgb Pending Hct Pending MCV Pending MCH Pending RDW Pending Plt Count Pending MPV Pending PUBS MCHC Pending Assessment/Plan Assessment/Plan Postoperative day 1 status post colostomy reversal and small bowel resection Dressing change postop day number 2, possible packing change later today, will discuss with attending Continue clears Monitor for return of bowel function Continue IV fluids Following labs Perioperative antibiotics. DVT prophylaxis w heparin DC molina cont prednisone for RA Core Measures Venous Thromboembolism VTE Risk Factors Surgery No Mechanical VTE Prophylaxis d/t N/A MechProphylax Ordered No VTE Pharm Prophylaxis d/t NA PharmProphylax ordered
[2017-03-08 07:59] VITALS: BP 124/58
[2017-03-08 08:18] LABS: ABSOLUTE BASOPHIL COUNT 0 /CUMM (0.0-0.2); ABSOLUTE EOSINOPHIL COUNT 0 /CUMM (0.0-0.7); ABSOLUTE MONOCYTE COUNT 0.5 /CUMM (0.10-0.60); BASOPHIL % 0 % (0.0-2.0); EOSINOPHIL % 0 % (0-5); HEMATOCRIT 30.8 % (42-52); MEAN CORPUSCULAR HGB 29.2 PG (27.0-31.0); MEAN CORPUSCULAR HGB CONC 33.3 G/DL (33.0-37.0); MEAN CORPUSCULAR VOLUME 87.8 FL (80.0-94.0); MEAN PLATELET VOLUME 8.4 FL (7.4-10.4); RBC DISTRIBUTION WIDTH 16.9 % (11.5-14.5); RED BLOOD CELL CT 3.51 /CUMM (4.70-6.10); WHITE BLOOD CELL COUNT 15.5 /CUMM (4.8-10.8)
[2017-03-08 09:05] LABS: GRANULOCYTE % 90.7 % (42.2-75.2); PLATELET COUNT 173 /CUMM (130-400)
[2017-03-08 12:02] VITALS: BP 128/68
[2017-03-08 16:48] VITALS: BP 106/54
[2017-03-08 22:52] VITALS: BP 118/68
[2017-03-09 06:35] VITALS: BP 102/58
--- NOTE | 2017-03-09 07:50 | PN- General Surgery ---
See Addendum Subjective Subjective: Patient feeling better today. No nausea no vomiting. Positive flatus, no bowel movement. Objective Vital Signs and I&Os Vital Signs Date Time Temp Pulse Resp B/P B/P Pulse O2 O2 Flow FiO2 Mean Ox Delivery Rate 03/09 0635 98.0 64 20 102/58 95 Nasal Cannula 03/09 0000 Nasal 2.0L Cannula 03/08 2252 98.9 65 20 118/68 95 Nasal 2.0L Cannula 03/08 1648 98.0 68 18 106/54 96 Nasal 1.0L Cannula 03/08 1600 94 Nasal 2.0L Cannula 03/08 1202 98.1 82 18 128/68 95 Nasal 1.0L Cannula 03/08 0759 98.2 84 18 124/58 95 Nasal Cannula Intake & Output 03/09 0800 03/09 0000 03/08 1600 03/08 0800 03/08 0000 03/07 1600 Intake Total 880 1350 1200 640 Output Total 500 950 970 700 650 Balance 380 400 230 -60 -650 Intake, IV 400 150 400 400 Intake, Oral 480 1200 800 240 Number 0 Bowel Movements Output, Urine 500 950 970 700 650 Patient 221 lb Weight Weight Reported by Patient Measurement Method Physical Exam: Well-developed well-nourished no apparent distress. HEENT: Atraumatic, extraocular motion intact Neck: Supple, no lymphadenopathy Respiratory: No respiratory distress Abdomen: Moderate amount dry bloody drainage at the ostomy site. Incision line is clean dry and intact, dressings changed, dry sterile dressing applied. Packing of the ostomy site removed and replaced with iodoform. Positive bowel sounds, minimal tenderness Extremities: No edema, no calf pain Neuro: Alert and oriented x3 Psych: Mood affect normal, normal memory normal judgment. Skin: Warm and dry, no rash on exposed skin Assessment/Plan Assessment/Plan Postoperative day 2 status post colostomy reversal and small bowel resection Daily packing changes and dressing changes, dry sterile dressing Continue clears, will discuss with attending regarding advanced into full liquid diet today Monitor for return of bowel function Follow am abs DVT prophylaxis w heparin cont prednisone for RA Pain meds as needed. Core Measures Venous Thromboembolism VTE Risk Factors Surgery No Mechanical VTE Prophylaxis d/t N/A MechProphylax Ordered No VTE Pharm Prophylaxis d/t NA PharmProphylax ordered
[2017-03-09 14:36] VITALS: BP 116/60
[2017-03-09 22:16] VITALS: BP 106/54
[2017-03-10 07:00] VITALS: BP 92/58
--- NOTE | 2017-03-10 14:41 | Event Note ---
Event Note Event Note: Rapid response was called at 1:36 PM due to convulsive seizure noted by nursing staff. Upon my arrival, pt was awake and alert. He stated that he has had seizure activity while inpatient in that past, but is not currently taking any antiepileptic medications and never has. He also reports some shaking events overnight while at home. Pt has a hx of polio and restless leg, for which he take Requip. He is also on Klonipin, which he has been receiving in the hospital. Hospital course has otherwise been uneventful, labs have been stable, and he is progressing well from a surgical standpoint. Urgent recommendations by the medical team included stat labs, neurology consult, EEG (but pt is refusing) , Q4 hour neuro checks, all of which have been requested. Update as of 4:00pm-Pt was seen by Dr. Rae from neurology. There was no evidence of post-ictal state or other signs of seizure (tongue biting, urinary incontinence, etc) during the above event. He suggests considering pseudo- seizure as a potential source and is not recommending prophylactic anti-seizure medications. He does recommend EEG, but pt continues to refuse. Labs are stable. will continue to monitor. If no further symptoms, we will still plan to discharge tomorrow.
--- NOTE | 2017-03-10 14:47 | PN- General Surgery ---
See Addendum Subjective Subjective: Pt is doing well and reports no complaints. He is tolerating a full liquid diet, passing flatus, and having BM's. He has been OOB per his reports and pain is reasonably controlled. Objective Vital Signs and I&Os Vital Signs Date Time Temp Pulse Resp B/P B/P Pulse O2 O2 Flow FiO2 Mean Ox Delivery Rate 03/10 699 98.3 68 18 92/58 95 Room Air 03/10 0000 Nasal 2.0L Cannula 03/09 2215 98.6 77 20 106/54 95 Nasal 2.0L Cannula 03/092 77 106/50 Intake & Output 03/10 1600 03/10 0800 03/10 0000 03/09 1600 03/09 0803/09 0000 Intake Total 929 240 5470 Output Total 200 889 709 4351 500 950 Balance -200 -300 -600 -150 380 400 Intake, IV 100 400 150 Intake, Oral 513 213 2184 Number 1 2 Bowel Movements Output, Stool 100 Output, Urine 200 221 218 8233 500 950 Patient 221 lb Weight Physical Exam: General: Pt is awake and alert. NAD. Cardiac: regular Pulm: CTA Abdomen: Obese, round, minimally distended. Midline incision is intact with lacey in place. Minimally tender, within expected limits. LLQ ostomy site is packed with xeroform and draining cloudy fluid, but no karma pus. Mild surrounding erythema is noted. Wound was repacked and dressing was changed. Normal BS were heard. Ext: no calf tenderness noted. Assessment/Plan Assessment/Plan Pt is a 72 yo M with a hx of RA, DM, restless leg syndrome, hx of polio, and hypothyroidism, who is now POD #3 s/p reversal of colostomy. Plan: -Advance diet to low residue diet. -Continue packing and dressing changes once daily. -Continue to encourage mobilization and ambulation. -If diet is tolerated, anticipate dc home possibly tomorrow. Core Measures Venous Thromboembolism VTE Risk Factors Surgery No Mechanical VTE Prophylaxis d/t N/A MechProphylax Ordered No VTE Pharm Prophylaxis d/t NA PharmProphylax ordered
[2017-03-10 14:55] VITALS: BP 124/64
[2017-03-10 14:55] LABS: ABSOLUTE BASOPHIL COUNT 0 /CUMM (0.0-0.2); ABSOLUTE EOSINOPHIL COUNT 0.1 /CUMM (0.0-0.7); ABSOLUTE GRANULOCYTE CT 5.1 /CUMM (1.4-6.5); ABSOLUTE LYMPH COUNT 0.7 /CUMM (1.2-3.4); ABSOLUTE MONOCYTE COUNT 0.4 /CUMM (0.10-0.60); BASOPHIL % 0.2 % (0.0-2.0); EOSINOPHIL % 1.1 % (0-5); GRANULOCYTE % 82.2 % (42.2-75.2); HEMATOCRIT 27.8 % (42-52); MEAN CORPUSCULAR VOLUME 87.8 FL (80.0-94.0); MEAN PLATELET VOLUME 7.8 FL (7.4-10.4); PLATELET COUNT 186 /CUMM (130-400); RBC DISTRIBUTION WIDTH 16.9 % (11.5-14.5); RED BLOOD CELL CT 3.16 /CUMM (4.70-6.10)
[2017-03-10 15:03] LABS: WHITE BLOOD CELL COUNT 6.2 /CUMM (4.8-10.8)
--- NOTE | 2017-03-10 15:42 | Cons- Neurology ---
General Information and HPI Consulting Request Date of Consult: 03/10/17 Requested By: Marquise ADAN,Chahco Nuñez History of Present Illness: 71-year-old male with history of old polio admitted on March 07 for colostomy reversal, initial surgery having been performed due to a diverticular abscess which apparently fistulized into the bladder. He had been recuperating rather uneventfully until earlier today when, following a stressor, he was found to be with eyes closed and shaking arms and legs. It was not clearly rhythmic. There was no associated tongue biting, incontinence or more pointedly, postictal confusion. Apparently he has had similar episodes which began approximately 2 years ago, most often in the face of stress. He had been worked up with EEG, results of which are currently unavailable for my review. However, he was never offered anticonvulsant therapy. In point of fact, the patient terms these events "panic attacks". He refers to himself as a "nervous [place]". Distress today involved him overhearing that his guaiac testing was positive for blood. Allergies/Medications Allergies: Coded Allergies: methotrexate (Severe, BREATHING PROBLEMS, ANAPHYLACTIC 03/07/17) dexamethasone (From MAXIDEX) (LETHARGY 03/01/17) aspartame (HEADACHE 01/19/17) Home Med List: Acetaminophen 500 MG TABLET 2 TAB PO EVERY 4 HRS/AWAKE PRN PAIN (Reported) Albuterol Sulfate (Proair Hfa) 90 MCG HFA.AER.AD 2 PUF INH Q4-6 PRN PRN ASTHMA (Reported) Clonazepam (Klonopin) 1 MG TABLET 1 TAB PO QHS SLEEP (Reported) Fentanyl 25 MCG/HOUR PATCH.TD72 1 PAT TOP Q48 PAIN CONTROL Fiorinal (Fiorinal 50-325-40 MG Capsule) 50 MG-325 MG-40 MG CAPSULE 1 TAB PO DAILY PRN MIGRAINE (Reported) Hydroxychlorquine (Plaquenil) 200 MG TABLET 1 TAB PO BID RA (Reported) Levothyroxine Sodium 100 MCG TABLET 1 TAB PO DAILY thyroid (Reported) Lidocaine 5 % ADH..PATCH 1 PAT TOP Q12P PRN PAIN (Reported) Naloxegol Oxalate (Movantik) 25 MG TABLET 1 TAB PO DAILY PRN CONSTIPATION ( Reported) Omeprazole Magnesium (Prilosec Otc) 20 MG TABLET.DR 1 TAB PO DAILY GI ( Reported) Oxycodone HCl 5 MG TABLET 1 TAB PO 5 TIMES A DAY PAIN (Reported) Prednisone 5 MG TABLET 1 TAB PO DAILY STEROID (Reported) Ropinirole HCl (Requip) 2 MG TABLET 1 TAB PO 1600 RESTLESS LEGS (Reported) Ropinirole HCl 1 MG TABLET 1 TAB PO 1200 RESTLESS LEGS (Reported) Tamsulosin HCl (Flomax) 0.4 MG CAP.ER.24H 2 CAP PO QPM PROSTATE (Reported) Review of Systems Review of Systems: Notable for joint pains, chronic weakness and atrophy of the right lower extremity and anxiety. There has been no recent diplopia, dysarthria, dysphagia , cough, vomiting, vertigo, rash or ataxia Past History Medical History Blood Transfusion Hx: No Neurological: NONE (polio), migraine, RESTLESS LEG SYNDROME anxiety post polio syndrome EENT: dental caries with recent tooth extraction Cardiovascular: angina Respiratory: asthma, obstructive sleep apnea Gastrointestinal: diverticulitis (intestinal resections.), "ABSCESS IN MY ABD" Hepatic: NONE Renal: NONE Musculoskeletal: degen joint disease, rheumatoid arthritis, currently scheduled for cervical spine surgery Psychiatric: anxiety Endocrine: hypothyroidism, obesity, DIABETES TYPE II Blood Disorders: NONE Cancer(s): NONE 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 FATHER (lUNG CANCER). BROTHER (MS, stroke). SISTER (diabetes). Psychosocial History Where Do You Live? Home Services at Home: None Smoking Status: Never Smoked Exam & Diagnostic Data Vital Signs and I&O Vital Signs Date Time Temp Pulse Resp B/P B/P Pulse O2 O2 Flow FiO2 Mean Ox Delivery Rate 03/10 1455 99.1 93 20 124/64 93 Room Air 03/10 0700 98.3 68 18 92/58 95 Room Air 03/10 0000 Nasal 2.0L Cannula 03/09 2215 98.6 77 20 106/54 95 Nasal 2.0L Cannula 03/09 2202 77 106/50 Intake & Output 03/10 1600 03/10 0800 03/10 0000 Intake Total Output Total 200 300 600 Balance -200 -300 -600 Number 1 Bowel Movements Output, Stool 100 Output, Urine 200 300 500 Pleasant elderly gentleman fully awake, alert and in no acute distress. Higher cortical function was intact. Speech was fluent. Pupils were equal. Extraocular movements were full. There was no nystagmus. Face was symmetric. Hearing was grossly normal. Tongue was midline. There were no fresh lacerations of the tongue. The motor examination showed no drift of the upper extremities. He had chronic atrophy of the right lower extremity. Deep tendon reflexes were diffusely hypoactive. Plantar responses were flexor. There was no ataxia on [id number] testing. The gait was unable not evaluated. 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 The absence of tongue biting or postictal state, the development of these events in late middle-age, absence of known cerebral scar and anxiety as a trigger would speak for this entity Recommendations: I would recommend a repeat EEG to rule out epileptiform features. We would not endorse starting anti-convulsant therapy. I attempted to reassure him and the surgical service. Please feel free to call with any further questions. Consult Acknowledgment - Thank you for your consult request.
[2017-03-10] MEDS ORDERED: OXYCODONE HCL5 M1 PO (20:09)
--- NOTE | 2017-03-10 20:20 | Patient Discharge Instructions ---
Discharge Instructions General Discharge Information You were seen/treated for: Diverticulitis status post Cuevas's procedure during previous admission You had these procedures: Open reversal of colostomy Watch for these problems: Fever greater than 101, drainage from the wound, increase in abdominal pain, chest pain, shortness of breath Call Surgeon to remove: Laurel (2 WEEKS POSTOP) Do not soak the wound: Yes No bath, but you may shower: Yes Other wound care: You may shower as desired. Dry dressing change with replacement of packing in the ostomy site once daily. Diet Continue normal diet: No Recommended Diet: Low Residue Activity Full Activity/No Limits: No Activity Self Limited: Yes Pounds, do NOT lift more than: 5 Other activity limits: No strenuous activity or heavy lifting, pushing, or pulling. Ambulation is encouraged. No driving while using narcotics. Acute Coronary Syndrome Inclusion Criteria At DC or during hospital stay patient has or had the following: ACS DIAGNOSIS No Discharge Core Measures Meds if any: Prescribed or Continued at Discharge Meds if any: NOT Prescribed or Continued at Discharge Congestive Heart Failure Inclusion Criteria At DC or during hospital stay patient has or had the following: CHF DIAGNOSIS No Discharge Core Measures Meds if any: Prescribed or Continued at Discharge Meds if any: NOT Prescribed or Continued at Discharge Cerebrovascular accident Inclusion Criteria At DC or during hospital stay patient has or had the following: CVA/TIA Diagnosis No Discharge Core Measures Meds if any: Prescribed or Continued at Discharge Meds if any: NOT Prescribed or Continued at Discharge Venous thromboembolism Inclusion Criteria VTE Diagnosis No VTE Type NONE VTE Confirmed by (Test) NONE Discharge Core Measures - Per Current guidelines, there needs to be overlap - treatment for the first 5 days of Warfarin therapy. - If discharged on Warfarin prior to 5 days of - overlap therapy, the patient will need to be - assessed for post discharge needs including - *Post discharge parental anticoagulation - *Warfarin and/or parental anticoagulation education - *Follow up date to check INR post discharge At least 5 days overlap therapy as Inpatient No Meds if any: Prescribed or Continued at Discharge Note: Overlap Therapy is Warfarin and Anticoagulant Meds if any: NOT Prescribed or Continued at Discharge
[2017-03-10 23:11] VITALS: BP 116/64
[2017-03-11 06:55] VITALS: BP 100/60
--- NOTE | 2017-03-11 08:23 | PN- General Surgery ---
Subjective Subjective: Awake, alert No complaints overnight Has had a bit of a cough - no wheezing, no sob Tolerating diet without pain or nausea +BM Objective Vital Signs and I&Os Vital Signs Date Time Temp Pulse Resp B/P B/P Pulse O2 O2 Flow FiO2 Mean Ox Delivery Rate 03/11 0655 99.1 84 20 100/60 92 Room Air 03/10 2311 99.0 93 20 116/64 91 Room Air 03/10 2114 126/65 03/10 1455 99.1 93 20 124/64 93 Room Air Intake & Output 03/11 1600 03/11 0800 03/11 0000 03/10 1600 03/10 0803/10 0000 Intake Total 300 840 Output Total 200 250 700 300 600 Balance -200 50 140 -300 -600 Intake, Oral 300 840 Number 1 Bowel Movements Output, Stool 100 Output, Urine 200 250 700 300 500 Physical Exam: Tmax 99.1, all other vss General: alert and oriented times three Chest: few rhonchi at bases, clears with cough, no rales, no wheezing, RRR Abd: soft, nondistended, appropriately tender, good bs Ext: warm, no edema Wound: midline lacey intact - no erythema or drainage, packing changed - area looks good without erythema or active drainage Assessment/Plan Assessment/Plan 72yo male s/p colostomy reversal, sb rsxn evaluated yesterday by neurology for questionable seizure/pseudoseizure Neuro assessment reviewed - Assessment as follows - My suspicion is that 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 The absence of tongue biting or postictal state, the development of these events in late middle-age, absence of known cerebral scar and anxiety as a trigger would speak for this entity Recommendations: I would recommend a repeat EEG to rule out epileptiform features. We would not endorse starting anti-convulsant therapy. I attempted to reassure him and the surgical service. Please feel free to call with any further questions. Pt has refused EEG at this time - Neurology aware, no follow up recommended except prn Plan is to discharge home with home nursing for wound care. Follow up 1-[address] Camarillo - call sooner if needed All instructions given Core Measures Venous Thromboembolism VTE Risk Factors Surgery No Mechanical VTE Prophylaxis d/t N/A MechProphylax Ordered No VTE Pharm Prophylaxis d/t NA PharmProphylax ordered
--- NOTE | 2017-03-12 13:34 | Surgical Discharge Summary ---
Visit Information Visit Dates Admission Date: 03/07/17 Discharge Date: 03/11/17 History of Present Illness Chief Complaint: colostomy Medical History Blood Transfusion Hx: No Neurological: NONE (polio), migraine, RESTLESS LEG SYNDROME anxiety post polio syndrome EENT: dental caries with recent tooth extraction Cardiovascular: angina Respiratory: asthma, obstructive sleep apnea Gastrointestinal: diverticulitis (intestinal resections.), "ABSCESS IN MY ABD" Hepatic: NONE Renal: NONE Musculoskeletal: degen joint disease, rheumatoid arthritis, currently scheduled for cervical spine surgery Psychiatric: anxiety Endocrine: hypothyroidism, obesity, DIABETES TYPE II Blood Disorders: NONE Cancer(s): NONE 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 FATHER (lUNG CANCER). BROTHER (ME, stroke). SISTER (diabetes). Psychosocial History Where Do You Live? Home Who Do You Live With? Spouse Services at Home: None What is Your Primary Language? Uzbek Review of Systems: see preop Hospital Course Course Attending Physician: Chacho Camarillo MD Primary Care Physician: Stacy ADAN,[facility] Course: patient admitted after colostomy reversal. He had early return of bowel function and diet advanced. he developed pseudoseizure which was evaluated by neurology. It was felt to be not of clinical concern. Allergies: Coded Allergies: methotrexate (Severe, BREATHING PROBLEMS, ANAPHYLACTIC 03/07/17) dexamethasone (From MAXIDEX) (LETHARGY 03/01/17) aspartame (HEADACHE 01/19/17) Significant Procedures: Colostomy reversal. Disposition Summary Disposition Principal Diagnosis: diverticulitis with colostomy Additional Diagnosis: non epileptic seizure Discharge Disposition: home health services Discharge Instructions General Discharge Information Code Status: Full Code Patient's Diet: regular Patient's Activity: no lifting Follow-Up Instructions/Appts: 2 weeks Medications at Discharge Discharge Medications: Continue taking these medications: Tamsulosin HCl (Flomax) 0.4 MG CAP.ER.24H 2 Capsule ORAL Every night Comments: Last Taken: 03/10/17 Time: 900 PM Omeprazole Magnesium (Prilosec Otc) 20 MG TABLET.DR 1 Tablet ORAL DAILY Comments: Last Taken: 03/11/17 Time: 600 AM Prednisone (Prednisone) 5 MG TABLET 1 Tablet ORAL DAILY Comments: Last Taken: 03/11/17 Time: 900 AM Hydroxychlorquine (Plaquenil) 200 MG TABLET 1 Tablet ORAL TWICE DAILY Comments: Last Taken: 03/11/17 Time: 900 AM Levothyroxine Sodium (Levothyroxine Sodium) 100 MCG TABLET 1 Tablet ORAL DAILY Qty = 30 Comments: Last Taken: 03/11/17 Time: 600 AM Ropinirole HCl (Ropinirole HCl) 1 MG TABLET 1 Tablet ORAL 1200 Comments: Last Taken: 03/10/17 Time: 100 PM Ropinirole HCl (Requip) 2 MG TABLET 1 Tablet ORAL 1600 Comments: Last Taken: 03/10/17 Time: 900 PM Fentanyl (Fentanyl) 25 MCG/HOUR PATCH.TD72 1 Patch On the skin EVERY 48 HOURS (Every 2 days) Qty = 10 Comments: Last Taken: 03/10/17 Time:1000 AM Albuterol Sulfate (Proair Hfa) 90 MCG HFA.AER.AD 2 Puff Inhale through mouth EVERY 4-6 HOURS NEEDED as needed for ASTHMA Comments: Last Taken: 03/10/17 Time: 900 PM Fiorinal (Fiorinal 50-325-40 MG Capsule) 50 MG-325 MG-40 MG CAPSULE 1 Tablet ORAL DAILY as needed for MIGRAINE Comments: NOT GIVEN IN HOSPITAL Lidocaine (Lidocaine) 5 % ADH..PATCH 1 Patch On the skin Every 12 hours as needed as needed for PAIN Comments: NOT GIVEN IN HOSPITAL Naloxegol Oxalate (Movantik) 25 MG TABLET 1 Tablet ORAL DAILY as needed for CONSTIPATION Comments: NOT GIVEN IN HOSPITAL Clonazepam (Klonopin) 1 MG TABLET 1 Tablet ORAL TAKE AT BEDTIME Comments: Last Taken: 03/10/17 Time: 900 PM Acetaminophen (Acetaminophen) 500 MG TABLET 2 Tablet ORAL EVERY SIX HOURS NEEDED as needed for PAIN Instructions: NOT GIVEN IN HOSPITAL The following medications have been changed: Old: Oxycodone HCl (Oxycodone HCl) 5 MG TABLET 1 Tablet ORAL 5 TIMES A DAY New: Oxycodone HCl (Oxycodone HCl) 5 MG TABLET 1-2 Tablet ORAL EVERY 4-6 HOURS NEEDED as needed for PAIN Qty = 36 Instructions: UPON COMPLETION OF THIS RX, YOU MAY RESUME YOUR USUAL OXYCODONE DOSING Comments: Last Taken: 03/10/17 Time: AM Copies To: Stacy ADAN,Jose Antonio Lim
== END 2017-03-11 11:20 | disposition home health service (06) | DRG 331 ==
LOC: UNDOADMIN 02:18 → SDA 02:18 → 2NB 03-07 04:20 → ENRESERV 03-07 15:57 → EDBEDREQ 03-07 16:11 → ENRESERV 03-07 16:17 → ENTRNSPT 03-07 17:40 → EDTRNSPTSTS 03-07 17:46 → EDTRNSPT 03-07 17:46 → 2NB 03-07 17:52 → CMPTRNSPT 03-07 18:05 → ENPENDDIS 03-11 08:28 → ENTRNSPT 03-11 10:54 → EDTRNSPTSTS 03-11 11:14 → EDTRNSPT 03-11 11:14 → 2NB 03-11 11:20 → CMPTRNSPT 03-11 12:16
PROVIDERS: Physician Assistant Surgical
PROC: 0DSM0ZZ Reposition Descending Colon, Open Approach (ICD-10-PCS; principal; 2017-03-07)
PROC: 0DB80ZZ Excision of Small Intestine, Open Approach (ICD-10-PCS; 2017-03-07)
PROC: 0DN80ZZ Release Small Intestine, Open Approach (ICD-10-PCS; 2017-03-07)
PROC: 0DNP0ZZ Release Rectum, Open Approach (ICD-10-PCS; 2017-03-07)
DX: Z43.3 Encounter for attention to colostomy (principal); E11.8 Type 2 diabetes mellitus with unspecified complications; R56.9 Unspecified convulsions; M06.9 Rheumatoid arthritis, unspecified; K57.90 Diverticulosis of intestine, part unspecified, without perforation or abscess without bleeding; G47.33 Obstructive sleep apnea (adult) (pediatric); I10 Essential (primary) hypertension; E03.9 Hypothyroidism, unspecified; E66.01 Morbid (severe) obesity due to excess calories; Z68.39 Body mass index [BMI] 39.0-39.9, adult; G89.29 Other chronic pain; G25.81 Restless legs syndrome; F41.9 Anxiety disorder, unspecified; M19.90 Unspecified osteoarthritis, unspecified site; E11.9 Type 2 diabetes mellitus without complications
CPT/HCPCS: 2NBP; SDA; 36415; 82436; 87086; 94799; C9399; J0131; J0690; J1170; J1644; J1720; J1885; J2175; J3010; J3490; J7042; J7512

== ENCOUNTER 2017-03-16 10:21 | Emergency (ER) | payer OTHER, MEDICARE ==
[~2017-03-16] VITALS: Ht 160 cm; Wt 98.9 kg
[~2017-03-16 10:21] MED LIST changes: +ACETAMINOPHEN500 M4 PO; +FIORINAL 50-321 EACH PO; +KLONOPIN1 M1 PO; +LIDOCAINE1 EACH TOP; +MOVANTIK25 M1 PO
[2017-03-16] MEDS ORDERED: OXYCODONE HCL5 M1 PO (11:31)
--- NOTE | 2017-03-16 12:05 | ED GI/GU/ABDOMINAL COMPLAINT ---
History of Present Illness General Chief Complaint: General Adult Stated Complaint: SENT BY BERONICA FOR EVAL Source: patient Exam Limitations: no limitations Allergies Coded Allergies: methotrexate (Severe, BREATHING PROBLEMS, ANAPHYLACTIC 03/07/17) dexamethasone (From MAXIDEX) (LETHARGY 03/01/17) aspartame (HEADACHE 01/19/17) Reconcile Medications Acetaminophen 500 MG TABLET 2 TAB PO Q6P PRN PAIN (Reported) NOT GIVEN IN HOSPITAL Albuterol Sulfate (Proair Hfa) 90 MCG HFA.AER.AD 2 PUF INH Q4-6 PRN PRN ASTHMA (Reported) Cephalexin (Keflex) 500 MG CAPSULE 1 CAP PO TID cellulitis Clonazepam (Klonopin) 1 MG TABLET 1 TAB PO QHS SLEEP (Reported) Fentanyl 25 MCG/HOUR PATCH.TD72 1 PAT TOP Q48 PAIN CONTROL Fiorinal (Fiorinal 50-325-40 MG Capsule) 50 MG-325 MG-40 MG CAPSULE 1 TAB PO DAILY PRN MIGRAINE (Reported) Hydroxychlorquine (Plaquenil) 200 MG TABLET 1 TAB PO BID RA (Reported) Levothyroxine Sodium 100 MCG TABLET 1 TAB PO DAILY thyroid (Reported) Lidocaine 5 % ADH..PATCH 1 PAT TOP Q12P PRN PAIN (Reported) Omeprazole Magnesium (Prilosec Otc) 20 MG TABLET.DR 1 TAB PO DAILY GI ( Reported) Oseltamivir Phosphate (Tamiflu) 75 MG CAPSULE 1 CAP PO BID flu Oxycodone HCl 5 MG TABLET 1 TAB PO TID PAIN (Reported) Prednisone 5 MG TABLET 1 TAB PO DAILY STEROID (Reported) Ropinirole HCl 1 MG TABLET 1 TAB PO 1200 RESTLESS LEGS (Reported) Ropinirole HCl (Requip) 2 MG TABLET 1 TAB PO QPM RESTLESS LEGS (Reported) Tamsulosin HCl (Flomax) 0.4 MG CAP.ER.24H 2 CAP PO QPM PROSTATE (Reported) Triage Note: PT SENT TO ED BY DR LOCO FOR LOW GRADE FEVERS FOR 3 DAYS. PT WAS DISCHARGED 03/11 S/P COLOSTOMY REVERSAL ON 03/07. PT HAS HAD A COUGH, HEADACHE, "I FELT LIKE I GOT HIT BY A TRUCK" FOR 3 DAYS. ALSO FEELS ABD IS SWOLLEN. LAST BM WAS 1 HR AGO AND "IS GETTING MORE NORMAL" Triage Nurses Notes Reviewed? yes Onset: Abrupt Duration: day(s): (4-5), intermittent Timing: recent history Location: generalized abdomen No Modifying Factors: none HPI: 72-year-old male comes into emergency room for further evaluation of drainage out of his abdominal wound and fever chills body aches. Patient had a colostomy reversal done in early March of this year. He was discharged a few days back. He's been experiencing a fever at home greater than 101. Some associated chills and body aches. Associated cough. Nurse came in and evaluated the wound today and noticed that there was some drainage out of the wound and sent him in for further evaluation. They spoke with the general surgeon. (Laz Edwards) Vital Signs & Intake/Output Vital Signs & Intake/Output Vital Signs Date Time Temp Pulse Resp B/P B/P Pulse O2 O2 Flow FiO2 Mean Ox Delivery Rate 03/16 1444 98.7 67 18 103/57 96 Room Air 03/16 1309 72 16 109/58 95 Room Air 03/16 1142 Room Air 03/16 1039 98.7 81 18 117/65 94 Room Air (Radha ADAN,Santo Esquivel) Past History Travel History Traveled to [place] past 21 day No Medical History Any Pertinent Medical History? 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 FATHER (lUNG CANCER). BROTHER (IA, stroke). SISTER (diabetes). Hx Contributory? No (Laz Edwards) Review of Systems Review of Systems Constitutional: Reports: see HPI. EENTM: Reports: see HPI. Respiratory: Reports: see HPI. Cardiovascular: Reports: no symptoms. GI: Reports: see HPI. Genitourinary: Reports: no symptoms. Musculoskeletal: Reports: no symptoms. Skin: Reports: no symptoms. Neurological/Psychological: Reports: no symptoms. Hematologic/Endocrine: Reports: no symptoms. Immunologic/Allergic: Reports: no symptoms. All Other Systems: Reviewed and Negative (Laz Edwards) Physical Exam Physical Exam General Appearance: well developed/nourished, alert, awake Head: atraumatic Eyes: Bilateral: normal appearance. Ears, Nose, Throat, Mouth: hearing grossly normal, moist mucous membrane Neck: normal inspection Respiratory: normal breath sounds, no respiratory distress Cardiovascular: regular rate/rhythm Gastrointestinal: soft, ABDOMINAL INCISIONS REVEAL NO ERYTHEMA, SOME INDURATION AROUND THE SITES, SOME SEROSANGUINEOUS FLUID DRAINAGE, NO EVIDENCE OF TISSUE NECROSIS, Back: normal inspection Extremities: normal range of motion Neurologic/Psych: awake, alert, oriented x 3, normal gait, normal mood/affect Skin: intact, normal color Core Measures ACS in differential dx? No Sepsis Present: No Sepsis Focused Exam Completed? No (Laz Edwards) Progress Differential Diagnosis: INFLUENZA, ABDOMINAL WALL ABSCESS, LIPOMA, PERFORATION, SEPSIS, CELLULITIS, Plan of Care: Orders Procedure Date/time Status LACTIC ACID 03/16 1421 Active BLOOD CULTURE 03/16 1121 Active LIPASE 03/16 1121 Complete LACTIC ACID 03/16 1121 Complete COMPREHENSIVE METABOLIC PANEL 03/16 1121 Complete CBC WITHOUT DIFFERENTIAL 03/16 1121 Complete RAPID VIRAL INFLUENZA A 03/16 1046 Complete VIRAL CULTURE 03/16 1046 Active Laboratory Tests 03/16/17 1156: Anion Gap 13, Estimated GFR > 60, BUN/Creatinine Ratio 15.0, Glucose 102 H, Lactic Acid 2.4 H, Calcium 8.1 L, Total Bilirubin 0.4, AST 32, ALT 42, Alkaline Phosphatase 52, Total Protein 5.9 L, Albumin 3.3 L, Globulin 2.6, Albumin/Globulin Ratio 1.3, Lipase 56, CBC w Diff NO MAN DIFF REQ, RBC 3.12 L, MCV 86.1, MCH 28.9, RDW 16.9 H, MPV 7.1 L, Gran % 66.7, Lymphocytes % 24.9, Monocytes % 7.2, Eosinophils % 1.1, Basophils % 0.1, Absolute Granulocytes 3.4, Absolute Lymphocytes 1.3, Absolute Monocytes 0.4, Absolute Eosinophils 0.1, Absolute Basophils 0, PUBS MCHC 33.5 03/16/17 1046: Virus Culture Pending Microbiology 03/16 1156 BLOOD: Blood Culture - RECD 03/16 1121 BLOOD: Blood Culture - ORD 03/16 1045 NASOPHARYN: Influenza Virus A & B Rapid Smear - COMP INFLUENZA TYPE A Diagnostic Imaging: Viewed by Me: CT Scan. Discussed w/RAD: CT Scan. Radiology Impression: PATIENT: SAMUEL RUVALCABA PRESENT AGE: 72 PATIENT ACCOUNT NO: [id number] : 46 LOCATION: [facility] ORDERING PHYSICIAN: Laz ARCE SERVICE DATE: 03/16/17 EXAM TYPE : CAT - CT ABD & PELVIS W IV CONTRAST EXAMINATION: CT ABDOMEN AND PELVIS WITH CONTRAST CLINICAL INFORMATION: Abdominal pain. History of colostomy reversal on 03/07/2017. COMPARISON: 09/02/2016, 08/15/2016, 08/14/2016, and 12/06/2014. TECHNIQUE: Multidetector volumetric imaging was performed of the abdomen and pelvis following IV administration of 95 mL of Optiray 320 intravenous contrast. Sagittal and coronal reformatted images were obtained on the technologist's workstation. DLP: 1336.17 mGy-cm FINDINGS: LUNG BASES: Persistent stable 4 mm noncalcified right middle lobe lung nodule is noted, unchanged since 12/06/2014, consistent with benign pathology. LIVER, GALLBLADDER, AND BILIARY TREE: The liver is normal in size, shape, and attenuation. No focal hepatic lesion or biliary ductal dilatation is present. The gallbladder is surgically absent. There is persistent stable mild central intrahepatic as well as extrahepatic biliary ductal dilatation present, unchanged. PANCREAS: Unremarkable. SPLEEN: Unremarkable. ADRENAL GLANDS: Unremarkable. KIDNEYS AND URETERS: The kidneys are normal in size, shape, and attenuation. No hydronephrosis, hydroureter, or calculi seen. No perinephric stranding. BLADDER: Unremarkable. GASTROINTESTINAL TRACT: Postsurgical changes are noted from colostomy reversal in the region of the sigmoid colon. Postsurgical changes are also noted within the small bowel loops, unchanged since multiple prior studies. A second area of new postsurgical changes are noted within the small bowel loops adjacent to the umbilicus. The stomach is decompressed. The small bowel loops are decompressed. The large bowel is also decompressed. ABDOMINAL WALL: Interval development of a small nonobstructing hernia noted just superior to the umbilicus to the right of the midline containing a small bowel loop (image #56, 57 and 58/99) adjacent to the site of new postsurgical change. Previously documented fat only containing left- sided paraumbilical hernia is also reidentified with a small left anterior abdominal wall defect measuring 1.3 cm, unchanged since 09/02/2016. There is significant soft tissue thickening and stranding noted within the lower anterior abdominal wall at and below the level of the umbilicus with new postsurgical cutaneous lacey likely from recent surgery. Specific note is made of an ill- defined heterogeneous soft tissue mass-like density seen along the left lower anterior abdominal pelvic wall within the subcutaneous fat abutting the anterior abdominal, pelvic wall musculature, best seen on image #68/99 series 2, measures approximately 4.8 x 5.3 cm at its maximum transverse by anteroposterior dimension, may represent postsurgical change including hematoma versus postoperative resolving seroma or developing infection. Further differentiation cannot be made based on this imaging appearance alone. LYMPH NODES: Normal. VASCULAR: Diffuse atherosclerotic disease is noted within the aorta and its branches without aneurysm formation, unchanged. PELVIC VISCERA: There is no free fluid, free air or fluid collection identified. OSSEOUS STRUCTURES: No suspicious lytic or sclerotic abnormality is seen. IMPRESSION: 1. No CT evidence of any acute intra-abdominal and/or intrapelvic pathology identified. However, nonspecific soft tissue mass-like densities identified along the left lower anterior abdominopelvic wall within the subcutaneous fat abutting the abdominal and pelvic wall musculatures, given the patient recent history of surgery, may represent resolving hematoma, seroma or evolving infection/abscess formation. 2. Note is also made of a new right periumbilical small bowel containing ventral hernia without any obstruction. 3. Persistent stable small left periumbilical fat only containing anterior abdominal wall hernia. DICTATED BY: Ricardo Arcos MD DATE/TIME DICTATED:03/16/171313 PROOF PASSER:SUYAPA DATE/ TIME TRANSCRIBED:03/16/171313 CONFIDENTIAL, DO NOT COPY WITHOUT APPROPRIATE AUTHORIZATION. <Electronically signed in Other Vendor System> SIGNED BY: Ricardo Arcos MD 03/16/17 3541 Initial ED EKG: none (Laz Edwards) Departure Departure Disposition: HOME OR SELF CARE Condition: Stable Clinical Impression Primary Impression: Influenza A Secondary Impressions: Postoperative cellulitis of surgical wound Referrals: Stacy ADAN,Jose Antonio Lim (PCP/Family) Additional Instructions: Take Keflex and Tamiflu as prescribed. Respiratory drink plenty fluids. Follow -up with your general surgeon. Return if any other concerns. Please go over all results of today's visit with your primary care doctor. Contact your primary care doctor to let them know you were here in the emergency room. There may be nonspecific findings which may not be related to your visit today here in the emergency room but may require further evaluation and chronic monitoring by your primary care doctor. If you had a laceration today the chance of foreign body always remains. You should follow-up with your primary care doctor for recheck in 3-5 days for a wound check. If you had an x-ray done there is a chance that a fracture could have been missed on initial read and you should follow-up with your primary care doctor for repeat x-rays if symptoms persist. If your blood pressure was elevated here in the emergency room please have rechecked by [facility] primary care doctor within the next 48. If you were prescribed a narcotic here in the emergency room or any type of controlled substances you're not allowed to drive while taking this medication or operate any type of heavy machinery. Narcotics can make you feel lightheaded dizziness nausea and can cause constipation. You may need to lemon picker a stool softener. Thank you for choosing [facility] emergency room. Please return to the emergency room immediately if you have any other concerns worsening of symptoms. Departure Forms: Customer Survey General Discharge Information Prescriptions: Current Visit Scripts Oseltamivir Phosphate (Tamiflu) 1 CAP PO BID #10 CAP Cephalexin (Keflex) 1 CAP PO TID #30 CAP Comments 03/16/2017 4:22:10 PM Patient clinically looks well. Patient is in no apparent distress. Fever is related to the flu a not a postoperative infection. Take antibiotics as prescribed. Rest. There is some mild erythema around the site so Dr. Loco wanted to treat the patient with Keflex. Dr. Loco saw and evaluated the patient. He reviewed the CT scan. Serosanguineous fluid. Patient seen by Dr. Garcia. Return if any other concerns. Patient understands and agrees a plan of care. Patient is anxious to go home. He looks well for his age. Safe for discharge at this time. (Reinier ARCE,Laz) PA/SYSTEMS COORDINATOR Co-Sign Statement Statement: ED Attending supervision documentation- [X] I saw and evaluated the patient. I have also reviewed all the pertinent lab results and diagnostic results. I agree with the findings and the plan of care as documented in the PA's/SYSTEMS COORDINATOR's documentation. [] I have reviewed the ED Record and agree with the PA's/SYSTEMS COORDINATOR's documentation. [] Additions or exceptions (if any) to the PAs/SYSTEMS COORDINATOR's note and plan are summarized below: [] (Radha ADAN,Santo Esquivel)
[2017-03-16 12:11] LABS: ABSOLUTE BASOPHIL COUNT 0 /CUMM (0.0-0.2); ABSOLUTE EOSINOPHIL COUNT 0.1 /CUMM (0.0-0.7); ABSOLUTE GRANULOCYTE CT 3.4 /CUMM (1.4-6.5); ABSOLUTE LYMPH COUNT 1.3 /CUMM (1.2-3.4); ABSOLUTE MONOCYTE COUNT 0.4 /CUMM (0.10-0.60); BASOPHIL % 0.1 % (0.0-2.0); EOSINOPHIL % 1.1 % (0-5); GRANULOCYTE % 66.7 % (42.2-75.2); HEMATOCRIT 26.9 % (42-52); MEAN CORPUSCULAR HGB 28.9 PG (27.0-31.0); MEAN CORPUSCULAR HGB CONC 33.5 G/DL (33.0-37.0); MEAN CORPUSCULAR VOLUME 86.1 FL (80.0-94.0); MEAN PLATELET VOLUME 7.1 FL (7.4-10.4); PLATELET COUNT 217 /CUMM (130-400); RBC DISTRIBUTION WIDTH 16.9 % (11.5-14.5); RED BLOOD CELL CT 3.12 /CUMM (4.70-6.10); WHITE BLOOD CELL COUNT 5.1 /CUMM (4.8-10.8)
--- NOTE | 2017-03-16 13:51 | CT SCAN REPORT ---
EXAMINATION: CT ABDOMEN AND PELVIS WITH CONTRAST CLINICAL INFORMATION: Abdominal pain. History of colostomy reversal on 03/07/2017. COMPARISON: 09/02/2016, 08/15/2016, 08/14/2016, and 12/06/2014. TECHNIQUE: Multidetector volumetric imaging was performed of the abdomen and pelvis following IV administration of 95 mL of Optiray 320 intravenous contrast. Sagittal and coronal reformatted images were obtained on the technologist's workstation. DLP: 1336.17 mGy-cm FINDINGS: LUNG BASES: Persistent stable 4 mm noncalcified right middle lobe lung nodule is noted, unchanged since 12/06/2014, consistent with benign pathology. LIVER, GALLBLADDER, AND BILIARY TREE: The liver is normal in size, shape, and attenuation. No focal hepatic lesion or biliary ductal dilatation is present. The gallbladder is surgically absent. There is persistent stable mild central intrahepatic as well as extrahepatic biliary ductal dilatation present, unchanged. PANCREAS: Unremarkable. SPLEEN: Unremarkable. ADRENAL GLANDS: Unremarkable. KIDNEYS AND URETERS: The kidneys are normal in size, shape, and attenuation. No hydronephrosis, hydroureter, or calculi seen. No perinephric stranding. BLADDER: Unremarkable. GASTROINTESTINAL TRACT: Postsurgical changes are noted from colostomy reversal in the region of the sigmoid colon. Postsurgical changes are also noted within the small bowel loops, unchanged since multiple prior studies. A second area of new postsurgical changes are noted within the small bowel loops adjacent to the umbilicus. The stomach is decompressed. The small bowel loops are decompressed. The large bowel is also decompressed. ABDOMINAL WALL: Interval development of a small nonobstructing hernia noted just superior to the umbilicus to the right of the midline containing a small bowel loop (image #56, 57 and 58/99) adjacent to the site of new postsurgical change. Previously documented fat only containing left-sided paraumbilical hernia is also reidentified with a small left anterior abdominal wall defect measuring 1.3 cm, unchanged since 09/02/2016. There is significant soft tissue thickening and stranding noted within the lower anterior abdominal wall at and below the level of the umbilicus with new postsurgical cutaneous lacey likely from recent surgery. Specific note is made of an ill-defined heterogeneous soft tissue mass-like density seen along the left lower anterior abdominal pelvic wall within the subcutaneous fat abutting the anterior abdominal, pelvic wall musculature, best seen on image #68/99 series 2, measures approximately 4.8 x 5.3 cm at its maximum transverse by anteroposterior dimension, may represent postsurgical change including hematoma versus postoperative resolving seroma or developing infection. Further differentiation cannot be made based on this imaging appearance alone. LYMPH NODES: Normal. VASCULAR: Diffuse atherosclerotic disease is noted within the aorta and its branches without aneurysm formation, unchanged. PELVIC VISCERA: There is no free fluid, free air or fluid collection identified. OSSEOUS STRUCTURES: No suspicious lytic or sclerotic abnormality is seen. IMPRESSION: 1. No CT evidence of any acute intra-abdominal and/or intrapelvic pathology identified. However, nonspecific soft tissue mass-like densities identified along the left lower anterior abdominopelvic wall within the subcutaneous fat abutting the abdominal and pelvic wall musculatures, given the patient recent history of surgery, may represent resolving hematoma, seroma or evolving infection/abscess formation. 2. Note is also made of a new right periumbilical small bowel containing ventral hernia without any obstruction. 3. Persistent stable small left periumbilical fat only containing anterior abdominal wall hernia.
[2017-03-16] MEDS ORDERED: TAMIFLU75 M1 PO (14:25)
[2017-03-16] MEDS ORDERED: KEFLEX500 M1 PO (14:25)
[2017-03-16 14:44] VITALS: BP 103/57
== END 2017-03-16 14:52 ==
LOC: ERH 10:21
PROVIDERS: Physician Assistant Medical
DX: J10.1 Influenza due to other identified influenza virus with other respiratory manifestations (principal); L03.311 Cellulitis of abdominal wall; Z87.891 Personal history of nicotine dependence
CPT/HCPCS: 74177; 87040; 87804; 87804-59; 96361; 96374